=== PATIENT | male | born 1950 | race Asian ===

== ENCOUNTER 2017-09-06 10:19 | Outpatient (CLI) | payer MEDICARE, OTHER | END 2017-09-06 10:20 | disposition home or self-care (01) | LOC: SC 10:19 | PROVIDERS: ATTEND Nurse Practitioner Family | DX: G47.33 Obstructive sleep apnea (adult) (pediatric) (principal) | CPT/HCPCS: 99214; G0463; 99212 ==

== ENCOUNTER 2018-12-11 08:34 | Outpatient (CLI) | payer MEDICARE, OTHER | END 2018-12-11 08:35 | disposition home or self-care (01) | LOC: SC 08:34 | PROVIDERS: ATTEND Nurse Practitioner Family | DX: G47.33 Obstructive sleep apnea (adult) (pediatric) (principal) | CPT/HCPCS: 99214; G0463; 99212 ==

== ENCOUNTER 2019-02-21 08:23 | Outpatient (CLI) | payer MEDICARE, OTHER | END 2019-02-21 08:24 | disposition home or self-care (01) | LOC: SC 08:23 | PROVIDERS: ATTEND Nurse Practitioner Family | DX: G47.33 Obstructive sleep apnea (adult) (pediatric) (principal) | CPT/HCPCS: 99214; G0463; 99212 ==

== ENCOUNTER 2021-06-23 11:21 | Outpatient (CLI) | payer MEDICARE, OTHER ==
--- NOTE | 2021-06-23 12:03 | SLEEP CARE CONSULTATION ---
Information from patient questionnaire entered by Zoie Batista. I have reviewed and concur with the information entered by Zoie Batista. This document represents the service I personally performed and the decisions made by , Carlie Meredith ARNP. History of Present Illness Service Date and Time: 06/23/2021 1121 Previous diagnosis: Mild, Obstructive Sleep Apnea-Hypopnea Syndrome AHI: 11 (in 2012) Reason for follow up: annual (last seen 06/2020) Equipment type: CPAP Equipment obtained from: [employer] (getting supplies as needed) Mask style: Nasal Backup mask available: Yes (old mask) Last cushion change: 1 month ago Prior sleep studies: Yes Year and Where: [address] - [facility]; 2003 - in [place], [place] ([facility]) Type of Sleep Study: Polysomnography HPI additional information: MARCO ANTONIO MAYBERRY was diagnosed to have mild, AHI 11.0, obstructive sleep apnea- hypopnea syndrome and returned today for CPAP therapy annual follow-up. CPAP Compliance Data - Data Reviewed with Patient Average duration of nightly device use: 6 hr 2 min Compliance rate %: 88.9 (180 days) Current pressure setting (cmH2O): 8-10 Humidity settin Heated hose settin Average residual AHI: 2.3 Average large leak: 27 sec Subjective Missed days of use due to: reports: mask issues (irritation on nose) Patient concerns: reports: mask discomfort (when he had skin irritation/rash under his nose). denies: aerophagia, air blowing in eyes, mask leak noise, condensation in mask/hose, nasal congestion, dry mouth, nose, throat, epistaxis, other Observed to snore while using device: No Current pressure setting perceived as: comfortable On therapy, patient: reports: sleeping better, awakening more refreshed, being more awake and alert during the day, more rested overall. denies: drowsiness while driving Initial [place] Sleepiness Scale score: 16 (in 2012) Current [place] Sleepiness Scale score: 2 Allergies and Home Medications Home medication list reviewed: Yes (no changes) Review of Systems Review of systems same as previous: Yes (no changes) Physical Exam Heart Rate: 63 O2 Saturation: 98 Height: 5 ft 4 in Weight: 177 lb 9.6 oz Body Mass Index: 30.4 BMI Classification: Obese Impression and Plan 1. Obstructive Sleep Apnea-Hypopnea Syndrome, mild, with good treatment compliance and good apnea control. On CPAP therapy, the patient has better sleep quality and is more rested overall. Patient had about a week where he had some skin irritation, rash, under his nose and was unable to use his CPAP device. He would like to get a fullface mask that he could use during the situations but likes the nasal mask for most use. I advised him that he can obtain cough barriers to reduce skin irritation. He has also been washing his mask daily to try and reduce this irritation. Pad a Cheek cloth skin barrier pamphlet given about the product. He may purchase a full face mask to use as an alternate if he so desires. He voiced understanding. Patient's apnea severity and rationale for treatment to reduce apnea, improve sleep quality and reduce cardiovascular and cerebrovascular events was reviewed. I also reviewed the benefit of consistent device use of CPAP for borderline hypertension. * Continue autoCPAP pressure at 8-10 cmH2O * Obtain fabric barrier to reduce skin irritation * Notify me if snoring with mask or feeling that the pressure is too much or too little * Attempt to lose weight * Call this office if any problems using CPAP * Return for follow up in 1 year, or sooner if concerns arise Counseling Topics: Spare mask, Weight loss health impact Visit Type: In Office Time Spent with Patient (minutes): 14 Provider Statement: I spent 100% of the Face to Face Visit with the patient with greater than 50% spent counseling the patient and coordination of care.
== END 2021-06-23 11:22 | disposition home or self-care (01) ==
LOC: SC 11:21
PROVIDERS: ATTEND Nurse Practitioner Family
DX: G47.33 Obstructive sleep apnea (adult) (pediatric) (principal); E66.9 Obesity, unspecified; Z68.30 Body mass index [BMI] 30.0-30.9, adult
CPT/HCPCS: 99212; G0463

== ENCOUNTER 2021-12-31 11:36 | Outpatient (CLI) | payer MEDICARE, OTHER | END 2021-12-31 11:37 | disposition critical access hospital (66) | LOC: EMS 11:36 | DX: R07.1 Chest pain on breathing (principal); R06.02 Shortness of breath; S89.91XA Unspecified injury of right lower leg, initial encounter; S49.91XA Unspecified injury of right shoulder and upper arm, initial encounter; W11.XXXA Fall on and from ladder, initial encounter; Y93.H2 Activity, gardening and landscaping | CPT/HCPCS: A0425; A0427 ==

== ENCOUNTER 2021-12-31 11:54 | Inpatient (IN) | payer MEDICARE, OTHER ==
[2021-12-31] MEDS ORDERED: KETOROLAC 30 MG/ML VIAL IVP STA (12:43)
[2021-12-31] MEDS ORDERED: HYDROmorphone 1 MG/ML CARPUJECT IVP STA ×2 (12:43→15:11)
--- NOTE | 2021-12-31 12:54 | ED Physician Documentation ---
History of Present Illness - Stated complaint Stated Complaint: FALL/SIDE PX - Chief complaint Chief Complaint: Trauma Ext - History obtained from History obtained from: Patient - History of Present Illness Timing: How many days ago (2) Pain level max: 10 Pain level now: 8 - Additonal information Additional information: Patient is a 71-year-old male who states he was on a ladder about 7 to 8 feet in the air 2 days ago when he slipped and fell. He landed on grass. Landed on the right side of his ribs and right wrist. Complains of right rib pain and right wrist pain. Worse with movement, better with rest. Worse with coughing and deep breathing. Increasing pain today. No vomiting. No headache. Does not take anticoagulants. No neck or back pain. No focal neurological deficits. No abdominal pain. Review of Systems Constitutional: denies: Fever, Chills Nose: denies: Rhinorrhea / runny nose, Congestion Throat: denies: Sore throat Cardiac: denies: Palpitations GI: denies: Vomiting, Diarrhea Skin: denies: Rash Musculoskeletal: denies: Neck pain, Back pain Neurologic: denies: Headache PD PAST MEDICAL HISTORY - Past Medical History Past Medical History: Yes Cardiovascular: Hypertension - Present Medications Home Medications: Ambulatory Orders Medication Instructions Recorded Confirmed Telmisartan/Hydrochlorothiazid 1 each PO 12/31/21 [Micardis Hct 40-12.5 mg Tablet] - Allergies Allergies/Adverse Reactions: Allergies Allergy/AdvReac Type Severity Reaction Status Date / Time chlorpromazine Allergy Unknown Verified 12/31/21 21:41 [From Thorazine] Penicillins Allergy Unknown Verified 12/31/21 12:07 - Living Situation Living Arrangement: reports: At home - Social History Does the pt have substance abuse?: No - Family History Family history: reports: Non contributory PD ED PE NORMAL - Vitals Vital signs reviewed: Yes - General General: Alert and oriented X 3, No acute distress, Well developed/nourished - HEENT HEENT: Atraumatic, PERRL, Moist mucous membranes, Pharynx benign - Neck Neck: Supple, no meningeal sign, No bony TTP, C-Spine cleared by NEXUS criteria - Cardiac Cardiac: RRR - Respiratory Respiratory: No respiratory distress, Clear bilaterally - Abdomen Abdomen: Soft, Non tender, Non distended - Back Back: No spinal TTP (No midline tenderness to palpation. No step-off or deformity) - Derm Derm: Warm and dry - Extremities Extremities: Other (Tender to palpation near the base of the right thumb as well as the distal radius of the right wrist. No snuffbox tenderness. Neurovascular intact. Otherwise normal examination of the hand, wrist, forearm and elbow.) - Neuro Neuro: Alert and oriented X 3, inner diameter grinder tool 2-12 intact, No motor deficit, No sensory deficit, Normal speech Eye Opening: Spontaneous Motor: Obeys Commands Verbal: Oriented GCS Score: 15 - Free text exam Free text exam: Tender to palpation over the right anterior chest wall. No crepitus or ecchymosis. Results - Vitals Vitals: Vital Signs - 24 hr 12/31/21 12/31/21 12/31/21 12:04 12:08 12:36 Temperature 36 C L Heart Rate 90 89 86 Respiratory 24 22 25 H Rate Blood Pressure 128/85 H 126/86 H O2 Saturation 93 95 12/31/21 13:06 Temperature Heart Rate 80 Respiratory 22 Rate Blood Pressure O2 Saturation 94 Oxygen O2 Source Room air - Labs Labs: Laboratory Tests 12/31/21 12/31/21 12/31/21 12:51 12:51 14:05 WBC 9.2 RBC 4.55 L Hgb 13.4 L Hct 40.7 L MCV 89.5 MCH 29.5 MCHC 32.9 RDW 12.7 Plt Count 181 MPV 9.0 Neut # (Auto) 7.6 H Lymph # (Auto) 0.8 L Chester # (Auto) 0.8 Eos # (Auto) 0.0 Baso # (Auto) 0.0 Absolute Nucleated RBC 0.00 Nucleated RBC % 0.0 Sodium 138 Potassium 3.4 L Chloride 101 Carbon Dioxide 23 Anion Gap 14.0 H BUN 20 Creatinine 1.1 Estimated GFR (MDRD) 66 L Glucose 115 H Calcium 8.9 Total Bilirubin 1.3 H AST 59 H ALT 56 Alkaline Phosphatase 44 Total Protein 7.0 Albumin 4.2 Globulin 2.8 Albumin/Globulin Ratio 1.5 Lipase 31 Nasal Adenovirus (PCR) NOT DETECTED Nasal B. parapertussis DNA (PCR) NOT DETECTED Nasal Coronavir 229E PCR NOT DETECTED Nasal Coronavir HKU1 PCR NOT DETECTED Nasal Coronavir NL63 PCR NOT DETECTED Nasal Coronavir OC43 PCR NOT DETECTED Nasal Enterovir/Rhinovir PCR NOT DETECTED Nasal Influenza B PCR NOT DETECTED Nasal Influenza A PCR NOT DETECTED Nasal Parainfluen 1 PCR NOT DETECTED Nasal Parainfluen 2 PCR NOT DETECTED Nasal Parainfluen 3 PCR NOT DETECTED Nasal Parainfluen 4 PCR NOT DETECTED Nasal RSV (PCR) NOT DETECTED Nasal B.pertussis DNA PCR NOT DETECTED Nasal C.pneumoniae (PCR) NOT DETECTED Jamaal Human Metapneumo PCR NOT DETECTED Nasal M.pneumoniae (PCR) NOT DETECTED Nasal SARS-CoV-2 (PCR) NOT DETECTED - Rads (name of study) Ct chest Radiology: Final report received, EMP read contemporaneously, See rad report R wrist xray Radiology: Final report received, EMP read contemporaneously, See rad report PD MEDICAL DECISION MAKING - ED course Complexity details: reviewed results, re-evaluated patient, considered differential, d/w patient ED course: 71-year-old male with multiple right-sided rib fractures, small pneumothorax. The injuries are over 48 hours old. Discussed the case with Dr. Silva, general surgery on-call. Will place on simple facemask with oxygen, pain medication, And admit the patient to ensure resolution of the pneumothorax as well as adequate pain control. Will need incentive spirometry as well, this was started in the ER. A Velcro thumb spica was placed for the radial styloid possible fracture.. The patient can follow-up with orthopedics as an outpatient, discussed with Dr. Greene, orthopedics. Ct chest IMPRESSION: 1. Right-sided rib fractures. 2. Small right pneumothorax. 3. Bibasilar atelectasis versus pneumonia. 4. Nonobstructing bilateral renal calculi. 5. Small hiatal hernia. R wrist XRAY 1.Cortical irregularity of the radiostyloid, concerning for minimally displaced fracture. Departure - Departure Disposition: [facility] DC/Xfer Clinical Impression: Multiple rib fractures Qualifiers: Encounter type: initial encounter Fracture type: closed Laterality: right Qualified Code(s): S22.41XA - Multiple fractures of ribs, right side, initial encounter for closed fracture Pneumothorax Qualifiers: Pneumothorax type: traumatic Encounter type: initial encounter Qualified Code(s): S27.0XXA - Traumatic pneumothorax, initial encounter Radial styloid fracture Qualifiers: Encounter type: initial encounter Fracture type: closed Fracture alignment: nondisplaced Laterality: right Qualified Code(s): S52.514A - Nondisplaced fracture of right radial styloid process, initial encounter for closed fracture Condition: Stable Discharge Date/Time: 12/31/21 17:41
[2021-12-31 12:55] LABS: BASOPHILS % (AUTO) 0.3 %; EOSINOPHILS % (AUTO) 0.1 %; HCT - HEMATOCRIT 40.7 % (42.0-52.0); HGB - HEMOGLOBIN 13.4 g/dL (14.0-18.0); LYMPHOCYTES # (AUTO) 0.8 10^3/uL (1.5-3.5); LYMPHOCYTES % (AUTO) 8.4 %; MEAN CORPUSCULAR HEMOGLOBIN 29.5 pg (27.0-31.0); MEAN CORPUSCULAR HGB CONC 32.9 g/dL (32.0-36.0); MEAN CORPUSCULAR VOLUME 89.5 fL (80.0-94.0); MONOCYTES # (AUTO) 0.8 10^3/uL (0.0-1.0); MONOCYTES % (AUTO) 8.4 %; NEUTROPHILS # (AUTO) 7.6 10^3/uL (1.5-6.6); NEUTROPHILS % (AUTO) 82.5 %; PLT - PLATELET COUNT 181 10^3/uL (130-450); RED BLOOD COUNT 4.55 10^6/uL (4.70-6.10); RED CELL DISTRIBUTION WIDTH 12.7 % (12.0-15.0); WHITE BLOOD COUNT 9.2 x10^3/uL (4.8-10.8)
[2021-12-31 13:11] LABS: ALBUMIN 4.2 g/dL (3.2-5.5); ALBUMIN/GLOBULIN RATIO 1.5 (1.0-2.2); BILIRUBIN,TOTAL 1.3 mg/dL (0.2-1.0); CALCIUM 8.9 mg/dL (8.5-10.3); CREATININE 1.1 mg/dL (0.6-1.2); POTASSIUM 3.4 mmol/L (3.5-5.0)
--- NOTE | 2021-12-31 13:11 | XRAY Report ---
PROCEDURE: Wrist 4 View RT INDICATIONS: fall, wrist pain TECHNIQUE: 4 views of the wrist were acquired. COMPARISON: None. FINDINGS: BONES: Cortical irregularity of the radiostyloid, best appreciated on the lateral view, concerning fo r minimally displaced fracture. Dorsal calcific densities are seen about the carpus, which may reflec t prior traumatic injury. The remaining visualized osseous structures appear maintained. SOFT TISSUES: No focal abnormality. IMPRESSION: 1.Cortical irregularity of the radiostyloid, concerning for minimally displaced fracture. Reviewed by: Marquis Moon MD on 12/31/2021 1:10 PM [facility] Approved by: Marquis Moon MD on 12/31/2021 1:10 PM [facility] Station ID: [id number]
--- NOTE | 2021-12-31 13:54 | CT Report ---
PROCEDURE: CHEST WO INDICATIONS: R chest wall pain s/p fall 2 days ago TECHNIQUE: Noncontrast 1mm axial images were acquired from the pulmonary apices to the posterior costophrenic an gles. Axial 5 mm soft tissue kernel reconstructions were performed as well as 8 mm axial MIP and cor onal and sagittal 5 mm reformations. For radiation dose reduction, the following was used: automate d exposure control, adjustment of mA and/or kV according to patient size. COMPARISON: None FINDINGS: Image quality: Excellent. Lungs and pleura: Moderate right and mild left bibasilar patchy airspace opacity. Small right-sided p neumothorax is present. Central and peripheral airways are patent and normal in caliber. Mediastinum: Heart size is normal. No pericardial effusion. No mediastinal adenopathy by size crit eria. Thoracic aorta and central pulmonary arteries are normal in size. Esophagus is normal in slava rafael. Small hiatal hernia. Bones and chest wall: Subcutaneous emphysema within the right chest wall. Moderately displaced right anterolateral third rib fracture. Minimally displaced right anterolateral fourth rib fracture. Mildl y displaced right anterolateral fifth, sixth, seventh, and eighth rib fractures. Mildly displaced pos terior fractures of the right second, fourth, fifth, sixth, seventh, and eighth ribs. No vertebral radha dy compression fractures. No axillary or supraclavicular adenopathy by size criteria. The thyroid i s normal in size and there are no incidental findings. Abdomen: Visualized portions of the upper abdomen demonstrate small nonobstructing bilateral renal c alculi. IMPRESSION: 1. Right-sided rib fractures. 2. Small right pneumothorax. 3. Bibasilar atelectasis versus pneumonia. 4. Nonobstructing bilateral renal calculi. 5. Small hiatal hernia. 6. Findings discussed with on 12/31/2021 at 1352 hours. Reviewed by: Jh Cooley MD on 12/31/2021 1:53 PM PST Approved by: Jh Cooley MD on 12/31/2021 1:53 PM PST Station ID: [id number]
[2021-12-31 15:12] LABS: CORONAVIRUS 229E-RESP PCR NOT DETECTED; CORONAVIRUS HKU1-RESP PCR NOT DETECTED; CORONAVIRUS NL63-RESP PCR NOT DETECTED; CORONAVIRUS OC43-RESP PCR NOT DETECTED; HUMAN METAPNEUMOVIRUS NOT DETECTED; INFLUENZA A- RESP PCR PANEL NOT DETECTED; RHINOVIRUS/ENTEROVIRUS NOT DETECTED; SARS-CoV-2 -RESP PCR PANEL NOT DETECTED
[2021-12-31 15:13] LABS: B. PARAPERTUSSIS- RESP PCR PAN NOT DETECTED; B. PERTUSSIS- RESP PCR PANEL NOT DETECTED; C. PNEUMONIAE- RESP PCR PANEL NOT DETECTED; INFLUENZA B - RESP PCR PANEL NOT DETECTED; M. PNEUMONIAE- RESP PCR PANEL NOT DETECTED; PARAINFLUENZA VIRUS 1 NOT DETECTED; PARAINFLUENZA VIRUS 2 NOT DETECTED; PARAINFLUENZA VIRUS 3 NOT DETECTED; PARAINFLUENZA VIRUS 4 NOT DETECTED; RSV- RESP PCR PANEL NOT DETECTED
[2021-12-31] MEDS ORDERED: ONDANSETRON ODT 4 MG TABLET TL PRN (15:33)
--- NOTE | 2021-12-31 15:40 | HISTORY & PHYSICAL EXAMINATION ---
Chief Complaint - Chief Complaint Chief Complaint: fall and poorly controlled pain History of Present Illness - Admitted From Admitted From:: ED - History Obtained From Records Reviewed: yes History obtained from: pt Exam Limitations: none - History of Present Illness HPI Comment/Other: fall from ladder 6 to 7 ft 2 days ago. not doing well at home due to chest wall pain. History - Past Medical History Cardiovascular: reports: Hypertension - Family & Social History Living arrangement: At home Meds/Allgy - Home Medications Home Medications: Ambulatory Orders Medication Instructions Recorded Confirmed Telmisartan/Hydrochlorothiazid 1 each PO 12/31/21 [Micardis Hct 40-12.5 mg Tablet] - Allergies Allergies/Adverse Reactions: Allergies Allergy/AdvReac Type Severity Reaction Status Date / Time Penicillins Allergy Unknown Verified 12/31/21 12:07 Review of Systems - Other Findings Other Findings: 10 pt ros as above otherwise unremarkable Exam - Vital Signs Reviewed Vital Signs: Yes Vital Signs: Vital Signs x48h Temp Pulse Resp BP Pulse Ox 12/31/21 13:06 80 22 94 12/31/21 12:36 86 25 H 126/86 H 95 12/31/21 12:08 89 22 12/31/21 12:04 36 C L 90 24 128/85 H 93 - Physical Exam General Appearance: positive: Alert Eyes Bilateral: positive: PERRL, EOMI ENT: positive: No signs of dehydration Neck: positive: No JVD Respiratory: positive: No respiratory distress, Breath sounds nml, Other (right chest wall tenderness) Cardiovascular: positive: Regular rate & rhythm Abdomen: positive: Non-tender, No distention Neurologic/Psychiatric: positive: Oriented x3 Conclusion/Plan - Problem List (1) Multiple rib fractures Conclusion/Plan: plan admit pain control O2 therapy for ptx repeat cxr in am close observation Qualifiers: Encounter type: initial encounter Fracture type: closed Laterality: right Qualified Code(s): S22.41XA - Multiple fractures of ribs, right side, initial encounter for closed fracture (2) Pneumothorax Qualifiers: Pneumothorax type: traumatic Encounter type: initial encounter Qualified Code(s): S27.0XXA - Traumatic pneumothorax, initial encounter - Lab Results Fish Bones: 12/31/21 12:51 12/31/21 12:51
[2021-12-31] MEDS: SODIUM CHLORIDE FLUSH 0.9% 10 ML SYRINGE IVP SCH (18:06)
[2021-12-31] MEDS: D5.45NS W/20 MEQ KCL 1,000 ML IV SCH (19:36)
[2021-12-31] MEDS: oxyCODONE 5 MG TABLET PO PRN ×2 (19:37→23:55)
[2021-12-31] MEDS: ACETAMINOPHEN 325 MG TABLET PO PRN ×2 (19:37→23:55)
[2021-12-31] MEDS ORDERED: ZOLPIDEM 5 MG TABLET PO PRN (21:00)
[2021-12-31] MEDS: IBUPROFEN 800 MG TABLET PO SCH (21:53)
[2022-01-01] MEDS: SODIUM CHLORIDE FLUSH 0.9% 10 ML SYRINGE IVP SCH ×4 (01:02→22:18)
[2022-01-01] MEDS: D5.45NS W/20 MEQ KCL 1,000 ML IV SCH ×2 (04:34→14:35)
[2022-01-01] MEDS: oxyCODONE 5 MG TABLET PO PRN ×5 (04:47→20:44)
[2022-01-01] MEDS: ACETAMINOPHEN 325 MG TABLET PO PRN ×5 (04:47→20:43)
[2022-01-01] MEDS: IBUPROFEN 800 MG TABLET PO SCH ×3 (05:56→22:18)
[2022-01-01] MEDS: polyethylene glycoL 3350 17 GM PACKET PO SCH (08:16)
--- NOTE | 2022-01-01 09:23 | XRAY Report ---
PROCEDURE: Chest 1 View X-Ray INDICATIONS: follow up ptx TECHNIQUE: One view of the chest was acquired. COMPARISON: Reference is made to the CT chest dated December 31, 2021. FINDINGS: The patient is mildly rotated. SUPPORT DEVICES: None. LUNGS/PLEURA: Persistent moderate right pneumothorax, measuring 5 cm in craniocaudal dimension. The l eft lung is well aerated. MEDIASTINUM: The cardiomediastinal silhouette is within normal limits. BONES/SOFT TISSUES: Redemonstrated right chest wall subcutaneous emphysema and right rib fractures. IMPRESSION: 1.Moderate right pneumothorax, which appears to have increased in size. Findings were discussed with the ordering provider, Dr. Silva, at the time of dictation. Reviewed by: Marquis Moon MD on 01/01/2022 9:22 AM [facility] Approved by: Marquis Moon MD on 01/01/2022 9:22 AM PST Station ID: [id number]
--- NOTE | 2022-01-01 14:12 | PROVIDER PROGRESS NOTE ---
Subjective - Subjective Pt reports feeling: Improved (still very painful, needing iv pain medication and assistance oob) Objective - Vital Signs/Intake & Output Reviewed Vital Signs: Yes Vital Signs: Vital Signs x48h Temp Pulse Resp BP Pulse Ox 01/01/22 13:00 66 20 135/78 H 95 01/01/22 12:00 78 22 142/100 H 94 01/01/22 11:00 62 16 128/79 97 01/01/22 10:29 23 95 01/01/22 10:00 71 25 H 128/81 H 92 01/01/22 09:00 73 28 H 133/84 H 92 01/01/22 08:00 36.5 C 81 20 137/90 H 92 01/01/22 07:00 61 15 125/80 93 Intake & Output: Intake & Output 12/29/21 12/30/21 12/31/21 01/01/22 23:59 23:59 23:59 23:59 Intake Total 540 2020.000 Output Total 350 Balance 190 2020.000 - Objective General Appearance: positive: No acute distress, Alert Eyes Bilateral: positive: PERRL, EOMI ENT: positive: No signs of dehydration Neck: positive: No JVD Respiratory: positive: No respiratory distress Abdomen: positive: Non-tender, No distention Neurologic/Psychiatric: positive: Oriented x3 - Lab Results Fish Bones: 12/31/21 12:51 12/31/21 12:51 Other Labs: Lab Results x24hrs 12/31/21 12/31/21 Range/Units 17:53 14:05 Nasal Adenovirus (PCR) NOT DETECTED Nasal B. parapertussis DNA (PCR) NOT DETECTED Nasal Coronavir 229E PCR NOT DETECTED Nasal Coronavir HKU1 PCR NOT DETECTED Nasal Coronavir NL63 PCR NOT DETECTED Nasal Coronavir OC43 PCR NOT DETECTED Nasal Enterovir/Rhinovir PCR NOT DETECTED Nasal Influenza B PCR NOT DETECTED Nasal Influenza A PCR NOT DETECTED Nasal Parainfluen 1 PCR NOT DETECTED Nasal Parainfluen 2 PCR NOT DETECTED Nasal Parainfluen 3 PCR NOT DETECTED Nasal Parainfluen 4 PCR NOT DETECTED Nasal RSV (PCR) NOT DETECTED Nasal Screen MRSA (PCR) NEGATIVE (NEGATIVE) Nasal B.pertussis DNA PCR NOT DETECTED Nasal C.pneumoniae (PCR) NOT DETECTED Jamaal Human Metapneumo PCR NOT DETECTED Nasal M.pneumoniae (PCR) NOT DETECTED Nasal SARS-CoV-2 (PCR) NOT DETECTED - Diagnostic Imaging Diagnostic Imaging Results: positive: Read independently (ptx present 15 %) Assessment/Plan - Problem List (1) Multiple rib fractures Impression: he continues to need iv pain medication and assistance oob ptx still present continue O2 follow up cxr in am Qualifiers: Encounter type: initial encounter Fracture type: closed Laterality: right Qualified Code(s): S22.41XA - Multiple fractures of ribs, right side, initial encounter for closed fracture (2) Pneumothorax Qualifiers: Pneumothorax type: traumatic Encounter type: initial encounter Qualified Code(s): S27.0XXA - Traumatic pneumothorax, initial encounter
[2022-01-02] MEDS: ACETAMINOPHEN 325 MG TABLET PO PRN ×4 (00:43→19:44)
[2022-01-02] MEDS: oxyCODONE 5 MG TABLET PO PRN ×3 (00:43→22:36)
[2022-01-02] MEDS: D5.45NS W/20 MEQ KCL 1,000 ML IV SCH (00:44)
[2022-01-02] MEDS: IBUPROFEN 800 MG TABLET PO SCH ×4 (05:05→22:36)
[2022-01-02] MEDS: ONDANSETRON 4 MG/2 ML VIAL IVP PRN (06:35)
--- NOTE | 2022-01-02 07:42 | XRAY Report ---
PROCEDURE: Chest 1 View X-Ray INDICATIONS: follow up right ptx TECHNIQUE: One view of the chest was acquired. COMPARISON: 01/01/2022 FINDINGS: Surgical changes and devices: None. Lungs and pleura: Interval increase in size of large right pneumothorax with near-complete collapse o f the right lung. No shift of mediastinal structures. Left lung appears clear. Mediastinum: Mediastinal contours appear stable. Heart size is normal. Bones and chest wall: No suspicious bony lesions. Overlying soft tissues appear unremarkable. Rede monstration of mildly displaced posterior upper right rib fractures. Moderate amount of subcutaneous soft tissue emphysema of the right lower neck and right chest wall IMPRESSION: Significant interval increase in now large right pneumothorax with near complete collapse of the righ t lung. No midline shift of mediastinal. Redemonstration of mildly displaced posterior upper right ri b fractures. No significant discrepancy with initial interpretation by overnight radiologist. Findings were already known by the surgical team and a chest tube has been placed. Reviewed by: Jose Pope MD on 01/02/2022 7:40 AM PST Approved by: Jose Pope MD on 01/02/2022 7:40 AM PST Station ID: [id number]
[2022-01-02] MEDS: HYDROmorphone 0.5 MG/0.5 ML SYRINGE IVP PRN ×2 (11:24→11:27)
--- NOTE | 2022-01-02 11:55 | OPERATIVE REPORT ---
Operative Report - General Admit Date: 01/01/22 Procedure Date: 01/02/22 Planned Procedure: right chest tube placement Pre-Op Diagnosis: right pneumothorax Procedure Performed: right chest tube placement Post Op Diagnosis: right hemopneumothorax - Procedure Note Primary Surgeon: marti mcmanus Anesthesia Technique: Local Estimated Blood Loss (mL): 500 Drain/Tube Type: Other (28 fr chest tube) Indications: complete pneumothorax Complications: none - Other Other Information/Narrative: sterile technique and local anesthesia. well tolerated
--- NOTE | 2022-01-02 11:56 | PROVIDER PROGRESS NOTE ---
Subjective - Subjective Pt reports feeling: No change Objective - Vital Signs/Intake & Output Reviewed Vital Signs: Yes Vital Signs: Vital Signs x48h Temp Pulse Resp BP Pulse Ox 01/02/22 10:00 81 20 132/78 H 96 01/02/22 09:00 36.9 C 83 20 155/91 H 98 01/02/22 08:00 78 19 143/80 H 100 01/02/22 07:00 72 12 133/79 H 100 01/02/22 06:00 67 14 144/92 H 4 L 01/02/22 05:00 70 18 134/78 H 100 01/02/22 04:00 68 15 120/88 H 100 Intake & Output: Intake & Output 12/30/21 12/31/21 01/01/22 01/02/22 23:59 23:59 23:59 23:59 Intake Total 540 2718.334 798.333 Output Total 350 375 Balance 190 2718.334 423.333 - Objective General Appearance: positive: Alert, Mild distress Eyes Bilateral: positive: PERRL, EOMI Neck: positive: No JVD Respiratory: positive: No respiratory distress Abdomen: positive: Non-tender, No distention Neurologic/Psychiatric: positive: Oriented x3 - Lab Results Fish Bones: 12/31/21 12:51 12/31/21 12:51 - Diagnostic Imaging Diagnostic Imaging Results: positive: Read independently Assessment/Plan - Problem List (1) Multiple rib fractures Impression: pneumothorax has progressed. parq held and consent obtained. right chest tube placed small air leak still present Qualifiers: Encounter type: initial encounter Fracture type: closed Laterality: right Qualified Code(s): S22.41XA - Multiple fractures of ribs, right side, initial encounter for closed fracture (2) Pneumothorax Qualifiers: Pneumothorax type: traumatic Encounter type: initial encounter Qualified Code(s): S27.0XXA - Traumatic pneumothorax, initial encounter
[2022-01-02] MEDS: polyethylene glycoL 3350 17 GM PACKET PO SCH (18:33)
[2022-01-02] MEDS: SODIUM CHLORIDE FLUSH 0.9% 10 ML SYRINGE IVP SCH ×3 (18:36→21:58)
[2022-01-03] MEDS: ACETAMINOPHEN 325 MG TABLET PO PRN ×5 (05:33→21:04)
[2022-01-03] MEDS: oxyCODONE 5 MG TABLET PO PRN ×5 (05:33→21:04)
--- NOTE | 2022-01-03 08:14 | XRAY Report ---
PROCEDURE: Chest 1 View X-Ray INDICATIONS: follow up ptx/ ct placement TECHNIQUE: One view of the chest was acquired. COMPARISON: 01/02/2022, 01/01/2022, chest CT 12/31/2021 FINDINGS: Surgical changes and devices: There is a right-sided chest tube, with the tip of the right lung apex. There is truncation of the left distal clavicle. Lungs and pleura: The right lung is now reexpanded, without visualized residual pneumothorax. Low long g volumes can be seen, causing a crowded appearance to the lung markings. Likely streaky atelectasis seen at the right lung base. Mediastinum: Mediastinal contours appear normal. Heart size is mildly enlarged. Bones and chest wall: No suspicious bony lesions. Age-appropriate degenerative changes are seen. T here is moderate right-sided subcutaneous gas seen, with the volume of gas increased compared to the 01/02/2022 examination. IMPRESSION: Interval placement of a right-sided chest tube, with resolution of the previously seen right-sided pn eumothorax. Moderate right-sided soft tissue gas can be seen. Reviewed by: Hima Al MD on 01/03/2022 7:13 AM [facility] Approved by: Hima Al MD on 01/03/2022 7:13 AM [facility] [[email or web address] Station ID: [id number]
[2022-01-03] MEDS: DOCUSATE SODIUM 250 MG CAPSULE PO SCH ×2 (08:31→08:33)
[2022-01-03] MEDS: polyethylene glycoL 3350 17 GM PACKET PO SCH (08:32)
[2022-01-03] MEDS: SENNA 8.6 MG TABLET PO SCH (08:33)
[2022-01-03] MEDS: SODIUM CHLORIDE FLUSH 0.9% 10 ML SYRINGE IVP SCH ×3 (08:51→23:19)
--- NOTE | 2022-01-03 13:39 | PROVIDER PROGRESS NOTE ---
Subjective - Prog Note Date Prog Note Date: 01/03/22 - Subjective Pt reports feeling: Improved (less painful and breathing improved) Objective - Vital Signs/Intake & Output Reviewed Vital Signs: Yes Vital Signs: Vital Signs x48h Temp Pulse Resp BP Pulse Ox 01/03/22 13:00 82 18 112/96 H 95 01/03/22 12:00 82 18 135/91 H 94 01/03/22 11:49 37.2 C 01/03/22 11:00 85 20 125/83 H 93 01/03/22 10:00 90 22 101/82 H 95 01/03/22 08:59 36.6 C 92 20 109/84 H 01/03/22 08:00 90 19 92 01/03/22 07:44 37 C 01/03/22 07:00 82 17 119/77 95 01/03/22 06:00 37.6 C 93 20 129/75 95 Intake & Output: Intake & Output 12/31/21 01/01/22 01/02/22 01/03/22 23:59 23:59 23:59 23:59 Intake Total 540 2718.334 2168.333 250 Output Total 350 1440 100 Balance 190 2718.334 728.333 150 - Objective General Appearance: positive: No acute distress, Alert ENT: positive: No signs of dehydration Neck: positive: No JVD Respiratory: positive: No respiratory distress Abdomen: positive: Non-tender, No distention Neurologic/Psychiatric: positive: Oriented x3 - Lab Results Fish Bones: 12/31/21 12:51 12/31/21 12:51 - Diagnostic Imaging Diagnostic Imaging Results: positive: Read independently (bilateral lung congestion. no ptx) Assessment/Plan - Problem List (1) Multiple rib fractures Impression: still very painful however improved continue present care anticipated chest tube out in 2 days and home in 3 days Qualifiers: Encounter type: initial encounter Fracture type: closed Laterality: right Qualified Code(s): S22.41XA - Multiple fractures of ribs, right side, initial encounter for closed fracture (2) Pneumothorax Qualifiers: Pneumothorax type: traumatic Encounter type: initial encounter Qualified Code(s): S27.0XXA - Traumatic pneumothorax, initial encounter
[2022-01-03] MEDS: IBUPROFEN 600 MG TABLET PO SCH ×2 (14:17→21:04)
[2022-01-04] MEDS: oxyCODONE 5 MG TABLET PO PRN ×4 (02:09→19:51)
[2022-01-04] MEDS: ACETAMINOPHEN 325 MG TABLET PO PRN ×2 (02:10→05:36)
[2022-01-04] MEDS: IBUPROFEN 600 MG TABLET PO SCH ×3 (05:36→21:48)
[2022-01-04] MEDS: SENNA 8.6 MG TABLET PO SCH (08:16)
[2022-01-04] MEDS: DOCUSATE SODIUM 250 MG CAPSULE PO SCH (08:16)
[2022-01-04] MEDS: polyethylene glycoL 3350 17 GM PACKET PO SCH (08:16)
[2022-01-04] MEDS: SODIUM CHLORIDE FLUSH 0.9% 10 ML SYRINGE IVP SCH ×3 (08:17→21:49)
[2022-01-04] MEDS ORDERED: MAGNESIUM HYDROXIDE 2,400 MG/30 ML UDC PO ONE (09:00)
--- NOTE | 2022-01-04 10:35 | PROVIDER PROGRESS NOTE ---
Subjective - Subjective Pt reports feeling: Improved (less painful and breathing improved) Objective - Vital Signs/Intake & Output Reviewed Vital Signs: Yes Vital Signs: Vital Signs x48h Temp Pulse Resp BP Pulse Ox 01/04/22 09:00 80 20 107/94 H 92 01/04/22 08:00 77 18 114/87 H 91 L 01/04/22 07:00 79 17 115/89 H 93 01/04/22 06:28 36.1 C L 81 22 118/83 H 91 L 01/04/22 05:00 61 16 135/84 H 96 01/04/22 04:00 61 14 102/73 95 01/04/22 03:00 59 L 17 101/77 94 Intake & Output: Intake & Output 01/01/22 01/02/22 01/03/22 01/04/22 23:59 23:59 23:59 23:59 Intake Total 2718.334 2168.333 1140 Output Total 1440 180 Balance 2718.334 728.333 960 - Objective General Appearance: positive: No acute distress, Alert, Other (appears much more comfortable today) Respiratory: positive: No respiratory distress Abdomen: positive: Non-tender, No distention Neurologic/Psychiatric: positive: Oriented x3 - Lab Results Fish Bones: 12/31/21 12:51 12/31/21 12:51 Assessment/Plan - Problem List (1) Multiple rib fractures Impression: improved today chest tube to water seal today. anticipate chest tube out tomorrow and home tomorrow or 01/06 Qualifiers: Encounter type: initial encounter Fracture type: closed Laterality: right Qualified Code(s): S22.41XA - Multiple fractures of ribs, right side, initial encounter for closed fracture (2) Pneumothorax Qualifiers: Pneumothorax type: traumatic Encounter type: initial encounter Qualified Code(s): S27.0XXA - Traumatic pneumothorax, initial encounter
[2022-01-05] MEDS: oxyCODONE 5 MG TABLET PO PRN ×6 (00:16→23:15)
[2022-01-05] MEDS: IBUPROFEN 600 MG TABLET PO SCH ×3 (06:24→21:39)
[2022-01-05] MEDS: SENNA 8.6 MG TABLET PO SCH (08:22)
[2022-01-05] MEDS: DOCUSATE SODIUM 250 MG CAPSULE PO SCH (08:22)
[2022-01-05] MEDS: polyethylene glycoL 3350 17 GM PACKET PO SCH (08:23)
--- NOTE | 2022-01-05 10:47 | PROVIDER PROGRESS NOTE ---
Subjective - Prog Note Date Prog Note Date: 01/05/22 - Subjective Pt reports feeling: No change (still very painful at times) Objective - Vital Signs/Intake & Output Reviewed Vital Signs: Yes Vital Signs: Vital Signs x48h Temp Pulse Resp BP BP Pulse Ox 01/05/22 10:00 87 23 124/81 H 93 01/05/22 09:00 36.3 C L 85 30 H 121/84 H 94 01/05/22 08:00 81 25 H 143/87 H 94 01/05/22 07:00 61 16 142/71 H 96 01/05/22 06:00 69 18 128/80 92 01/05/22 05:00 69 13 123/79 95 01/05/22 04:00 36.6 C 70 20 131/93 H 98 01/05/22 03:00 64 15 114/76 94 Intake & Output: Intake & Output 01/02/22 01/03/22 01/04/22 01/05/22 23:59 23:59 23:59 23:59 Intake Total 2168.333 1140 700 520 Output Total 1440 180 120 70 Balance 728.333 960 580 450 - Objective General Appearance: positive: No acute distress, Alert Eyes Bilateral: positive: PERRL, EOMI Respiratory: positive: No respiratory distress Abdomen: positive: Non-tender, No distention Neurologic/Psychiatric: positive: Oriented x3 - Lab Results Fish Bones: 12/31/21 12:51 12/31/21 12:51 Assessment/Plan - Problem List (1) Multiple rib fractures Impression: still very painful at times. plan clamp chest tube. recheck end of day. if no air leak or significant fluid, plan d/c chest tube later today. Qualifiers: Encounter type: initial encounter Fracture type: closed Laterality: right Qualified Code(s): S22.41XA - Multiple fractures of ribs, right side, initial encounter for closed fracture (2) Pneumothorax Qualifiers: Pneumothorax type: traumatic Encounter type: initial encounter Qualified Code(s): S27.0XXA - Traumatic pneumothorax, initial encounter
[2022-01-05] MEDS: ACETAMINOPHEN 325 MG TABLET PO PRN ×3 (11:36→21:40)
[2022-01-05] MEDS: SODIUM CHLORIDE FLUSH 0.9% 10 ML SYRINGE IVP SCH ×3 (13:21→23:15)
[2022-01-05] MEDS: HYDROmorphone 0.5 MG/0.5 ML SYRINGE IVP PRN (23:15)
[2022-01-06] MEDS: oxyCODONE 5 MG TABLET PO PRN ×7 (03:26→23:28)
[2022-01-06] MEDS: IBUPROFEN 600 MG TABLET PO SCH ×3 (05:00→22:08)
[2022-01-06] MEDS: HYDROmorphone 0.5 MG/0.5 ML SYRINGE IVP PRN (07:40)
--- NOTE | 2022-01-06 08:34 | PROVIDER PROGRESS NOTE ---
Subjective - Prog Note Date Prog Note Date: 01/06/22 - Subjective Pt reports feeling: Improved (still very painful; however, improved) Objective - Vital Signs/Intake & Output Reviewed Vital Signs: Yes Vital Signs: Vital Signs x48h Temp Pulse Resp BP Pulse Ox 01/06/22 08:00 37.1 C 83 22 102/69 95 01/06/22 06:50 84 16 109/73 88 L 01/06/22 06:00 80 20 98/77 90 L 01/06/22 05:00 72 14 103/67 91 L 01/06/22 04:00 36.8 C 68 11 L 97/75 93 01/06/22 03:00 72 12 95/61 93 01/06/22 02:00 68 13 95/65 95 01/06/22 01:00 85 16 92 Intake & Output: Intake & Output 01/03/22 01/04/22 01/05/22 01/06/22 23:59 23:59 23:59 23:59 Intake Total 4607 790 6166 200 Output Total 180 120 270 350 Balance 705 282 6351 -150 - Objective General Appearance: positive: No acute distress, Alert Eyes Bilateral: positive: PERRL, EOMI Respiratory: positive: No respiratory distress, Other (chest tube scant serous and no leak chest tube is removed. well tolerated) Abdomen: positive: Non-tender, No distention Neurologic/Psychiatric: positive: Oriented x3 - Lab Results Fish Bones: 12/31/21 12:51 12/31/21 12:51 Assessment/Plan - Problem List (1) Multiple rib fractures Impression: gradual improvement chest tube removed change vitals to q 4 hours home when able to ambulate safely, pain controlled without iv meds and room air sats > 92 % Qualifiers: Encounter type: initial encounter Fracture type: closed Laterality: right Qualified Code(s): S22.41XA - Multiple fractures of ribs, right side, initial encounter for closed fracture (2) Pneumothorax Qualifiers: Pneumothorax type: traumatic Encounter type: initial encounter Qualified Code(s): S27.0XXA - Traumatic pneumothorax, initial encounter
[2022-01-06] MEDS: SODIUM CHLORIDE FLUSH 0.9% 10 ML SYRINGE IVP SCH ×2 (09:00→16:57)
[2022-01-06] MEDS: polyethylene glycoL 3350 17 GM PACKET PO SCH (12:00)
[2022-01-06] MEDS: SENNA 8.6 MG TABLET PO SCH (12:00)
[2022-01-06] MEDS: ACETAMINOPHEN 325 MG TABLET PO PRN ×2 (16:00→20:41)
[2022-01-07] MEDS: CALCIUM CARBONATE CHEW 500 MG TABLET PO SCH ×3 (00:47→21:51)
[2022-01-07] MEDS: oxyCODONE 5 MG TABLET PO PRN ×7 (02:59→22:51)
[2022-01-07] MEDS: SODIUM CHLORIDE FLUSH 0.9% 10 ML SYRINGE IVP SCH ×3 (06:36→16:40)
[2022-01-07] MEDS: IBUPROFEN 600 MG TABLET PO SCH ×3 (07:55→21:51)
[2022-01-07] MEDS: DOCUSATE SODIUM 250 MG CAPSULE PO SCH (07:58)
[2022-01-07] MEDS: polyethylene glycoL 3350 17 GM PACKET PO SCH (07:59)
[2022-01-07] MEDS: SENNA 8.6 MG TABLET PO SCH (07:59)
[2022-01-07] MEDS: CHOLECALCIFEROL 25 MCG TABLET PO SCH (08:00)
[2022-01-07] MEDS: ACETAMINOPHEN 325 MG TABLET PO PRN ×2 (16:40→22:51)
[2022-01-08] MEDS: SODIUM CHLORIDE FLUSH 0.9% 10 ML SYRINGE IVP SCH ×4 (01:45→21:18)
[2022-01-08] MEDS: ACETAMINOPHEN 325 MG TABLET PO PRN ×3 (04:07→19:50)
[2022-01-08] MEDS: oxyCODONE 5 MG TABLET PO PRN ×4 (04:08→19:49)
[2022-01-08] MEDS: IBUPROFEN 600 MG TABLET PO SCH ×3 (05:36→21:19)
[2022-01-08] MEDS: DOCUSATE SODIUM 250 MG CAPSULE PO SCH (08:38)
[2022-01-08] MEDS: SENNA 8.6 MG TABLET PO SCH (08:38)
[2022-01-08] MEDS: CALCIUM CARBONATE CHEW 500 MG TABLET PO SCH ×2 (08:38→21:19)
[2022-01-08] MEDS: polyethylene glycoL 3350 17 GM PACKET PO SCH (08:38)
[2022-01-08] MEDS: CHOLECALCIFEROL 25 MCG TABLET PO SCH (08:38)
--- NOTE | 2022-01-08 10:11 | XRAY Report ---
PROCEDURE: Chest 1 View X-Ray INDICATIONS: follow up rib fxs and ptx TECHNIQUE: One view of the chest was acquired. COMPARISON: Prior studies dating back to December 31, 2021. FINDINGS: SUPPORT DEVICES: Interval removal of the patient's right chest tube. LUNGS/PLEURA: Moderate right pleural effusion with adjacent atelectasis. The left lung is well aerated. No pneumothorax. MEDIASTINUM: Prominence of the cardiac silhouette, partially exaggerated by technique. BONES/SOFT TISSUES: The patient's known rib fractures are not well seen. Persistent right chest wall subcutaneous emphysema, slightly improved. IMPRESSION: 1.Moderate right pleural effusion. Reviewed by: Marquis Moon MD on 01/08/2022 10:09 AM [facility] Approved by: Marquis Moon MD on 01/08/2022 10:09 AM [facility] Station ID: [id number]
[2022-01-08] MEDS ORDERED: SODIUM CHLORIDE 0.9% 10 ML VIAL IVP ONE ×2 (10:25→10:26)
[2022-01-08] MEDS ORDERED: EPINEPHrine 1 MG/ML AMP ONE (10:26)
[2022-01-08] MEDS ORDERED: ROPIVACAINE 0.5% PF 30 ML VIAL ONE (10:26)
[2022-01-08] MEDS ORDERED: LIDOCAINE-MPF 2% 5 ML VIAL ONE (10:26)
[2022-01-08] MEDS ORDERED: DEXAMETHASONE 10 MG/ML VIAL ONE (10:26)
--- NOTE | 2022-01-08 11:09 | ANESTHESIA PROCEDURE NOTE ---
Diagnosis: Right sided rib fractures Procedure: right Erector spinae block at T5 level Consent for Procedure(s) Verified and Reviewed: Yes Height and Weight: Height 5 ft 4 in Weight (kg) 78.5 kg Body Mass Index 29.7 Vital Signs: Temp Pulse Resp BP Pulse Ox 37.1 C 71 20 99/64 94 01/08/22 09:00 01/08/22 10:52 01/08/22 10:52 01/08/22 10:52 01/08/22 10:52 Allergies chlorpromazine [From Thorazine] Allergy (Verified 12/31/21 21:41) Unknown Penicillins Allergy (Verified 12/31/21 12:07) Unknown Requesting Provider: Dr. Silva ASA classification: 3-Severe systemic disease Is this case an emergency?: No Anes. Monitoring and Equipment: Non-invasive BP, Pulse oximetery, Sterile prep and drape Anes. Procedure Start Time: 10:30 Anes. Procedure Stop Time: 10:40 Procedure Notes: Right sided erector spinae block performed at T5 level with US guidance. Ropivacaine 0.25% 40 mL, Decadron 10 mg, with epi wash injected. Standard procedure followed. Pt tolerated well. Rates pain at 9/10 pre block, re- evaluated 20 mins post block at 5/10 pain.
--- NOTE | 2022-01-08 12:04 | PROVIDER PROGRESS NOTE ---
Subjective - Subjective Pt reports feeling: No change (still very painful) Objective - Vital Signs/Intake & Output Reviewed Vital Signs: Yes Vital Signs: Vital Signs x48h Temp Pulse Resp BP Pulse Ox 01/08/22 11:06 70 15 109/64 95 01/08/22 10:52 71 20 99/64 94 01/08/22 10:41 84 22 134/76 H 95 01/08/22 10:30 78 22 134/76 H 94 01/08/22 09:00 37.1 C 79 22 106/73 95 01/08/22 05:46 36.9 C 78 16 128/76 94 Intake & Output: Intake & Output 01/05/22 01/06/22 01/07/22 01/08/22 23:59 23:59 23:59 23:59 Intake Total 20090 1650 780 Output Total 270 350 350 Balance 1740 1270 1300 780 - Objective General Appearance: positive: No acute distress, Alert Respiratory: positive: No respiratory distress Abdomen: positive: Non-tender, No distention Neurologic/Psychiatric: positive: Oriented x3 - Lab Results Fish Bones: 12/31/21 12:51 12/31/21 12:51 Assessment/Plan - Problem List (1) Multiple rib fractures Impression: very painful still cxr right effusion. no ptx gabapentin and anesthesia consult for pain Qualifiers: Encounter type: initial encounter Fracture type: closed Laterality: right Qualified Code(s): S22.41XA - Multiple fractures of ribs, right side, initial encounter for closed fracture (2) Pneumothorax Qualifiers: Pneumothorax type: traumatic Encounter type: initial encounter Qualified Code(s): S27.0XXA - Traumatic pneumothorax, initial encounter
[2022-01-08] MEDS: GABAPENTIN 300 MG CAPSULE PO SCH ×2 (12:55→21:19)
[2022-01-08] MEDS ORDERED: MAGNESIUM HYDROXIDE 2,400 MG/30 ML UDC PO ONE ×2 (17:42→18:00)
[2022-01-08] MEDS: MULTIVITAMIN W/MINERALS TABLET PO SCH (17:49)
[2022-01-08] MEDS: HYDROmorphone 0.5 MG/0.5 ML SYRINGE IVP PRN (18:33)
[2022-01-09] MEDS: oxyCODONE 5 MG TABLET PO PRN ×6 (00:05→21:31)
[2022-01-09] MEDS: HYDROmorphone 0.5 MG/0.5 ML SYRINGE IVP PRN ×3 (04:43→16:01)
[2022-01-09] MEDS: SODIUM CHLORIDE FLUSH 0.9% 10 ML SYRINGE IVP PRN (04:43)
[2022-01-09] MEDS: ACETAMINOPHEN 325 MG TABLET PO PRN (04:56)
[2022-01-09] MEDS: IBUPROFEN 600 MG TABLET PO SCH ×3 (06:27→21:31)
[2022-01-09] MEDS: GABAPENTIN 300 MG CAPSULE PO SCH ×3 (06:27→21:30)
[2022-01-09] MEDS ORDERED: MAGNESIUM HYDROXIDE 2,400 MG/30 ML UDC PO ONE (07:40)
--- NOTE | 2022-01-09 09:06 | PROVIDER PROGRESS NOTE ---
Subjective - General Admit Date: 01/01/22 Procedure Date: 01/02/22 Post Op Days: 7 Objective - Patient Data Reviewed Vital Signs: Yes Vital Signs: Vital Signs x48h Temp Pulse Resp BP Pulse Ox 01/09/22 05:01 36.6 C 82 22 142/77 H 93 Intake & Output: Intake and Output Totals x24h 01/07/22 01/08/22 01/09/22 23:59 23:59 23:59 Intake Total 1650 1460 550 Output Total 350 500 400 Balance 1300 960 150 - Lab Results Lab Results: 12/31/21 12:51 12/31/21 12:51 - Current Medications Current Medications: Current Medications Generic Name Dose Route Start Last Admin Trade Name Freq PRN Reason Stop Dose Admin Calcium Carbonate/Glycine 500 mg 01/06/22 21:00 01/08/22 21:19 Calcium Carbonate Chew 500 Mg Tablet PO 500 mg BID FREDDIE Administration Cholecalciferol 50 mcg 01/07/22 09:00 01/08/22 08:38 Cholecalciferol 25 Mcg Tablet PO 50 mcg DAILY FREDDIE Administration Docusate Sodium 250 - 500 mg 01/03/22 09:00 01/08/22 08:38 Docusate Sodium 250 Mg Capsule PO 250 mg DAILY FREDDIE Administration Gabapentin 300 mg 01/08/22 13:00 01/09/22 06:27 Gabapentin 300 Mg Capsule PO 300 mg TID FREDDIE Administration Hydromorphone HCl 0.5 mg 12/31/21 15:33 01/09/22 04:43 Hydromorphone 0.5 Mg/0.5 Ml Syringe IVP 0.5 mg Q2H PRN Administration Pain 8 to 10 Ibuprofen 600 mg 01/03/22 14:00 01/09/22 06:27 Ibuprofen 600 Mg Tablet PO 600 mg Q8HR FREDDIE Administration Multivitamins/Minerals 1 tab 01/08/22 17:00 01/08/22 17:49 Multivitamin W/Minerals Tablet PO 1 tab DAILYWM FREDDIE Administration Ondansetron HCl 4 mg 12/31/21 15:33 12/31/21 18:06 Ondansetron Odt 4 Mg Tablet TL 4 mg Q6HR PRN Administration Nausea / Vomiting Ondansetron HCl 4 mg 12/31/21 15:33 01/02/22 06:35 Ondansetron 4 Mg/2 Ml Vial IVP 4 mg Q6HR PRN Administration Nausea / Vomiting Oxycodone HCl 5 mg 12/31/21 15:33 01/06/22 13:00 Oxycodone 5 Mg Tablet PO 5 mg Q4HR PRN Administration Pain 5 to 7 Oxycodone HCl 10 mg 12/31/21 15:33 01/09/22 04:57 Oxycodone 5 Mg Tablet PO 10 mg Q4HR PRN Administration Pain 8 to 10 Polyethylene Glycol 17 gm 01/01/22 09:00 01/08/22 08:38 Polyethylene Glycol 3350 17 Gm Packet PO 17 gm DAILY FREDDIE Administration Senna 8.6 - 17.2 mg 01/03/22 09:00 01/08/22 08:38 Senna 8.6 Mg Tablet PO 8.6 mg DAILY FREDDIE Administration Sodium Chloride 10 ml 12/31/21 15:33 01/09/22 04:43 Sodium Chloride Flush 0.9% 10 Ml Syringe IVP 10 ml PRN PRN Administration NEEDED PER PROVIDER ORDERS Sodium Chloride 10 ml 12/31/21 17:00 01/08/22 21:18 Sodium Chloride Flush 0.9% 10 Ml Syringe IVP 10 ml 0100,0900,1700 FREDDIE Administration - Physical Exam General Appearance: positive: No acute distress Neck: positive: Nml inspection Respiratory: positive: Other (Breathing well on 2L NC. Right chest breath sounds diminished.) Cardiovascular: positive: Regular rate & rhythm Abdomen: positive: Non-tender Extremities: positive: Nml appearance Neurologic/Psychiatric: positive: Oriented x3 Impression/Plan - Problem List Problem List: Right rib fractures and traumatic pneumothorax: Chest tube removed 01/06 Continued pain. Received erector spinae block yesterday which helped a bit. Will continued current pain control with scheduled tylenol, PRN oxy, PRN dilaudid, and add lidocaine patch. If Creatinine okay will stop ibuprofen and start toradol. Continued O2 requirement and RLL haziness (effusion versus opacity) on CXR. Continue pulm toilet and dose of lasix if Cr okay. If O2 requirement continues, will obtain chest CT scan and if effusion will consider thoracentesis.
[2022-01-09 09:07] LABS: BASOPHILS % (AUTO) 0.3 %; EOSINOPHILS % (AUTO) 0.1 %; HCT - HEMATOCRIT 39.1 % (42.0-52.0); LYMPHOCYTES % (AUTO) 2.6 %; MEAN CORPUSCULAR HEMOGLOBIN 29.4 pg (27.0-31.0); MEAN CORPUSCULAR HGB CONC 33.2 g/dL (32.0-36.0); MEAN CORPUSCULAR VOLUME 88.5 fL (80.0-94.0); MEAN PLATELET VOLUME 8.7 fL (7.4-11.4); NEUTROPHILS % (AUTO) 90.3 %; PLT - PLATELET COUNT 364 10^3/uL (130-450); RED BLOOD COUNT 4.42 10^6/uL (4.70-6.10); RED CELL DISTRIBUTION WIDTH 12.6 % (12.0-15.0)
[2022-01-09 09:10] LABS: ABNORMAL LYMPHS % (MANUAL) 0 %
[2022-01-09] MEDS: CALCIUM CARBONATE CHEW 500 MG TABLET PO SCH ×2 (09:10→21:31)
[2022-01-09] MEDS: MULTIVITAMIN W/MINERALS TABLET PO SCH (09:10)
[2022-01-09] MEDS: CHOLECALCIFEROL 25 MCG TABLET PO SCH (09:10)
[2022-01-09 09:11] LABS: INR 1.9 (0.8-1.2); PT - PROTHROMBIN TIME 21.2 secs (9.9-12.6)
[2022-01-09] MEDS: SENNA 8.6 MG TABLET PO SCH (09:11)
[2022-01-09] MEDS: DOCUSATE SODIUM 250 MG CAPSULE PO SCH (09:11)
[2022-01-09] MEDS: polyethylene glycoL 3350 17 GM PACKET PO SCH (09:11)
[2022-01-09] MEDS: SODIUM CHLORIDE FLUSH 0.9% 10 ML SYRINGE IVP SCH ×2 (09:11→17:41)
[2022-01-09 09:22] LABS: CALCIUM 9.4 mg/dL (8.5-10.3); CREATININE 1.2 mg/dL (0.6-1.2); POTASSIUM 4.3 mmol/L (3.5-5.0)
[2022-01-09 09:26] LABS: BAND NEUTROPHILS % (MANUAL) 7 %; BASOPHILS # (MANUAL) 0.2 10^3/uL (0-0.1); BASOPHILS % (MANUAL) 1 %; DIFFERENTIAL COMMENT MANUAL DIFFERENTIAL; EOSINOPHILS # (MANUAL) 0.5 10^3/uL (0-0.7); LYMPHOCYTES # (MANUAL) 0.9 10^3/uL (1.5-3.5); LYMPHOCYTES % (MANUAL) 4 %; MONOCYTES # (MANUAL) 1.4 10^3/uL (0.0-1.0); PLATELET ESTIMATE, MANUAL NORMAL (130-450,000) (NORMAL); PLATELET MORPHOLOGY NORMAL APPEARANCE (NORMAL); RBC MORPHOLOGY (MULTIPLE) NORMAL APPEARANCE (NORMAL)
[2022-01-09] MEDS: ONDANSETRON 4 MG/2 ML VIAL IVP PRN ×2 (09:57→16:01)
[2022-01-09] MEDS: LIDOCAINE PATCH 5% TOP PRN (10:34)
[2022-01-09] MEDS ORDERED: PHYTONADIONE 10 MG/ML AMP PO ONE (11:43)
[2022-01-09] MEDS ORDERED: CHERRY SYRUP 10 ML UDC PO ONE (11:43)
[2022-01-09] MEDS ORDERED: FUROSEMIDE 20 MG/2 ML VIAL IVP SCH (12:00)
[2022-01-09] MEDS: ENOXAPARIN 40 MG/0.4 ML SYRINGE SUBQ SCH (12:46)
[2022-01-09] MEDS: ACETAMINOPHEN 500 MG TABLET PO SCH ×3 (12:46→21:30)
--- NOTE | 2022-01-09 13:20 | CT Report ---
PROCEDURE: CHEST WO INDICATIONS: evaluate for pleural effusion or abscess TECHNIQUE: Noncontrast 1mm axial images were acquired from the pulmonary apices to the posterior costophrenic an gles. Axial 5 mm soft tissue kernel reconstructions were performed as well as 8 mm axial MIP and cor onal and sagittal 5 mm reformations. For radiation dose reduction, the following was used: automate d exposure control, adjustment of mA and/or kV according to patient size. COMPARISON: CT chest 12/31/2021 FINDINGS: Image quality: Excellent. Lungs and pleura: There is a mild to moderate right pleural effusion with areas of loculation as wel l as superimposed consolidative opacity within the bases. Previous pneumothorax has resolved. There a re no areas of pleural enhancement. Mediastinum: Heart size is normal. Trace pericardial effusion. No mediastinal adenopathy by size cr iteria. 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 Esophagus is normal in caliber. No hiatal hernia. Bones and chest wall: Multiple bilateral right rib fractures are again noted. No vertebral body compr ession fractures. No axillary or supraclavicular adenopathy by size criteria. The thyroid is normal in size and there are no incidental findings. There remains subcutaneous emphysema within the chest wall soft tissues, improved compared to prior exam. Abdomen: Nonobstructing bilateral renal calculi are noted. Otherwise, visualized upper abdominal kofi id organs and bowel loops appear normal in the absence of contrast. IMPRESSION: Interval resolution of previous right pneumothorax. Unchanged appearance of multiple right rib fractures. Mild to moderate right effusion with areas of superimposed consolidation suggestive atelectasis and/o r pneumonia, mildly progressive compared to prior exam. No imaging evidence of empyema or abscess. Persistent although improving appearance of subcutaneous emphysema. CLINICAL RECOMMENDATION STATEMENTS: In patients <35 years with an ITN detected on CT, MRI, or extrathyroidal ultrasound, the Committee re commends further evaluation with dedicated thyroid ultrasound if the nodule is "e1 cm and has no susp icious imaging features, and if the patient has normal life expectancy. In patients "e35 years with an ITN detected on CT, MRI, or extrathyroidal ultrasound, the Committee r ecommends further evaluation with dedicated thyroid ultrasound if the nodule is "e1.5 cm and has no s uspicious imaging features, and if the patient has normal life expectancy. (ACR, 2014) Reviewed by: Cyndi Cerrato MD on 01/09/2022 1:18 PM PST Approved by: Cyndi Cerrato MD on 01/09/2022 1:18 PM PST Station ID: [id number]
--- NOTE | 2022-01-09 13:28 | CT Report ---
PROCEDURE: Abdomen/Pelvis WO INDICATIONS: chest trauma TECHNIQUE: Noncontrast 5 mm thick sections acquired from the diaphragms to the symphysis. 5 mm coronal and sagi ttal reformats were then performed. For radiation dose reduction, the following was used: automated exposure control, adjustment of mA and/or kV according to patient size. COMPARISON: CT chest 12/31/2021, 01/09/2022 FINDINGS: Image quality: Excellent. ABDOMEN: Lung bases: Mild to moderate effusion with superimposed consolidation is present. Heart size is faisal l. Solid organs: Liver and spleen are normal in size. Gallbladder is unremarkable Pancreas is normal in contours. No adrenal nodules. Kidneys are normal in size, without hydronephrosis. There are 6 r enal calculi are identified within the left and right kidney bilaterally. They are subcentimeter in s ize ranging from 2 to 4 mm. There is no obstruction. Peritoneum and bowel: Unenhanced bowel loops demonstrate normal wall thickness and caliber. No free fluid or air. Nodes and vessels: No retroperitoneal or mesenteric adenopathy by size criteria. Aorta and inferior vena cava are normal in caliber. Miscellaneous: No ventral hernias. Persistent subcutaneous emphysema within the right chest wall im proving. PELVIS: Genitourinary: Bladder wall thickness is normal. Miscellaneous: No inguinal hernias or adenopathy. Bones: No suspicious bony lesions. No vertebral body compression fractures. Multiple right rib fra ctures. Please see CT chest report. IMPRESSION: Mild to moderate right pleural effusion increased compared to prior exam. Please see CT chest report of 01/09/2022 for further details. Nonobstructing renal calculi. Multiple right rib fractures and improving right chest wall subcutaneous emphysema. Reviewed by: Cyndi Cerrato MD on 01/09/2022 1:27 PM PST Approved by: Cyndi Cerrato MD on 01/09/2022 1:27 PM PST Station ID: [id number]
[2022-01-10] MEDS: SODIUM CHLORIDE FLUSH 0.9% 10 ML SYRINGE IVP SCH ×3 (00:29→19:31)
[2022-01-10] MEDS: oxyCODONE 5 MG TABLET PO PRN ×4 (02:30→15:41)
[2022-01-10] MEDS: SODIUM CHLORIDE FLUSH 0.9% 10 ML SYRINGE IVP PRN ×4 (04:23→20:30)
[2022-01-10] MEDS: HYDROmorphone 0.5 MG/0.5 ML SYRINGE IVP PRN ×4 (04:23→20:31)
[2022-01-10 05:21] LABS: BASOPHILS % (AUTO) 0.3 %; EOSINOPHILS % (AUTO) 0.6 %; HCT - HEMATOCRIT 36.7 % (42.0-52.0); HGB - HEMOGLOBIN 12.6 g/dL (14.0-18.0); LYMPHOCYTES % (AUTO) 2.7 %; MEAN CORPUSCULAR HEMOGLOBIN 30.1 pg (27.0-31.0); MEAN CORPUSCULAR HGB CONC 34.3 g/dL (32.0-36.0); MEAN CORPUSCULAR VOLUME 87.6 fL (80.0-94.0); MEAN PLATELET VOLUME 8.3 fL (7.4-11.4); MONOCYTES % (AUTO) 8.3 %; NEUTROPHILS % (AUTO) 87.4 %; PLT - PLATELET COUNT 399 10^3/uL (130-450); RED BLOOD COUNT 4.19 10^6/uL (4.70-6.10); RED CELL DISTRIBUTION WIDTH 12.8 % (12.0-15.0)
[2022-01-10] MEDS: ACETAMINOPHEN 500 MG TABLET PO SCH ×2 (05:21→15:38)
[2022-01-10] MEDS: GABAPENTIN 300 MG CAPSULE PO SCH ×2 (05:21→15:40)
[2022-01-10] MEDS: IBUPROFEN 600 MG TABLET PO SCH ×2 (05:21→15:38)
[2022-01-10 05:24] LABS: ABNORMAL LYMPHS % (MANUAL) 0 %
[2022-01-10 05:36] LABS: BILIRUBIN,DIRECT 0.5 mg/dL (0.1-0.5); BILIRUBIN,TOTAL 1.5 mg/dL (0.2-1.0); CALCIUM 9.3 mg/dL (8.5-10.3); CREATININE 1.3 mg/dL (0.6-1.2); POTASSIUM 4.4 mmol/L (3.5-5.0); TOTAL PROTEIN 6.5 g/dL (6.7-8.2)
[2022-01-10 05:54] LABS: BAND NEUTROPHILS % (MANUAL) 6 %; DIFFERENTIAL COMMENT MANUAL DIFFERENTIAL; LYMPHOCYTES # (MANUAL) 0.6 10^3/uL (1.5-3.5); LYMPHOCYTES % (MANUAL) 3 %; NEUTROPHILS # (MANUAL) 17.4 10^3/uL (1.5-6.6); PLATELET ESTIMATE, MANUAL NORMAL (130-450,000) (NORMAL); PLATELET MORPHOLOGY NORMAL APPEARANCE (NORMAL); RBC MORPHOLOGY (MULTIPLE) NORMAL APPEARANCE (NORMAL); WBC MORPHOLOGY (MULTIPLE) NORMAL APPEARANCE (NORMAL)
[2022-01-10] MEDS ORDERED: CHERRY SYRUP 10 ML UDC PO ONE (07:35)
[2022-01-10] MEDS ORDERED: PHYTONADIONE 10 MG/ML AMP PO ONE (07:35)
[2022-01-10] MEDS: MULTIVITAMIN W/MINERALS TABLET PO SCH (08:05)
[2022-01-10] MEDS: CHOLECALCIFEROL 25 MCG TABLET PO SCH (08:05)
[2022-01-10] MEDS: CALCIUM CARBONATE CHEW 500 MG TABLET PO SCH ×2 (08:05→20:07)
[2022-01-10] MEDS: DOCUSATE SODIUM 250 MG CAPSULE PO SCH (08:06)
[2022-01-10] MEDS: polyethylene glycoL 3350 17 GM PACKET PO SCH (08:06)
[2022-01-10] MEDS: SENNA 8.6 MG TABLET PO SCH (08:06)
[2022-01-10] MEDS: LIDOCAINE PATCH 5% TOP PRN (08:11)
[2022-01-10] MEDS: INSULIN ASPART 300 UNIT/3 ML PEN SUBQ SCH ×3 (08:16→19:32)
--- NOTE | 2022-01-10 09:19 | XRAY Report ---
PROCEDURE: Chest 1 View X-Ray INDICATIONS: follow up effusion TECHNIQUE: One view of the chest was acquired. COMPARISON: 01/08/2022 FINDINGS: Surgical changes and devices: None. Lungs and pleura: Interval decrease in [id number] right pleural effusion. No pneumothorax s een. Patchy bibasilar opacities more pronounced on the right. This likely represents atelectasis. Mediastinum: Mediastinal contours appear stable. Heart size is normal. Bones and chest wall: Lateral right rib fractures are again noted. Interval decrease in amount of ri ght chest wall subcutaneous soft tissue emphysema. No suspicious bony lesions. Overlying soft tissue s appear unremarkable. IMPRESSION: Interval decrease in size of now [id number] right pleural effusion. No pneumothorax. Persis tent but decreased right chest wall subcutaneous soft tissue emphysema. Redemonstration of mildly dis placed lateral right rib fractures. Reviewed by: Jose Pope MD on 01/10/2022 8:18 AM [place] Approved by: Jose Pope MD on 01/10/2022 8:18 AM [facility] Station ID: [id number]
--- NOTE | 2022-01-10 09:27 | PROVIDER PROGRESS NOTE ---
Subjective - General Admit Date: 01/01/22 Procedure Date: 01/02/22 Post Op Days: 8 - Other Other Information/Narrative: NAEO. Feeling ok today. Pain decently controlled and feels breathing is easy. Poor appetite. Objective - Patient Data Reviewed Vital Signs: Yes Vital Signs: Vital Signs x48h Temp Pulse Resp BP Pulse Ox 01/10/22 04:15 37.1 C 87 22 130/88 H 91 L Intake & Output: Intake and Output Totals x24h 01/08/22 01/09/22 01/10/22 23:59 23:59 23:59 Intake Total 1460 2170 680 Output Total 500 400 Balance 960 1770 680 - Lab Results Lab Results: 01/10/22 05:14 01/10/22 05:14 Other Lab Results: Lab Results x24hrs 01/10/22 01/10/22 01/10/22 Range/Units 05:14 05:14 05:14 WBC 20.0 H (4.8-10.8) x10^3/uL RBC 4.19 L (4.70-6.10) 10^6/uL Hgb 12.6 L (14.0-18.0) g/dL Hct 36.7 L (42.0-52.0) % MCV 87.6 (80.0-94.0) fL MCH 30.1 (27.0-31.0) pg MCHC 34.3 (32.0-36.0) g/dL RDW 12.8 (12.0-15.0) % Plt Count 399 (130-450) 10^3/uL MPV 8.3 (7.4-11.4) fL Neut # (Auto) Not Reportable Lymph # (Auto) Not Reportable [place] # (Auto) Not Reportable Eos # (Auto) Not Reportable Baso # (Auto) Not Reportable Absolute Nucleated RBC Not Reportable Total Counted 100 Band Neuts % (Manual) 6 (0 - 10) % Abnorm Lymph % (Manual) 0 % Nucleated RBC % Not Reportable Neutrophils # (Manual) 17.4 H (1.5-6.6) 10^3/uL Lymphocytes # (Manual) 0.6 L (1.5-3.5) 10^3/uL Monocytes # (Manual) 2.0 H (0.0-1.0) 10^3/uL Eosinophils # (Manual) 0.0 (0-0.7) 10^3/uL Basophils # (Manual) 0.0 (0-0.1) 10^3/uL Differential Comment MANUAL DIFFERENTIAL WBC Morphology NORMAL APPEARANCE (NORMAL) Platelet Estimate NORMAL (130-450,000) (NORMAL) Platelet Morphology NORMAL APPEARANCE (NORMAL) RBC Morph Micro Appear NORMAL APPEARANCE (NORMAL) PT 22.0 H (9.9-12.6) secs INR 2.0 H (0.8-1.2) Sodium 133 L (135-145) mmol/L Potassium 4.4 (3.5-5.0) mmol/L Chloride 92 L (101-111) mmol/L Carbon Dioxide 29 (21-32) mmol/L Anion Gap 12.0 (6-13) BUN 36 H (6-20) mg/dL Creatinine 1.3 H (0.6-1.2) mg/dL Estimated GFR (MDRD) 55 L (>89) Glucose 171 H (70-100) mg/dL Calcium 9.3 (8.5-10.3) mg/dL Total Bilirubin 1.5 H (0.2-1.0) mg/dL Direct Bilirubin 0.5 (0.1-0.5) mg/dL AST 108 H (10-42) IU/L ALT 116 H (10-60) IU/L Alkaline Phosphatase 80 (42-121) IU/L Total Protein 6.5 L (6.7-8.2) g/dL Albumin 3.0 L (3.2-5.5) g/dL Globulin 3.5 (2.1-4.2) g/dL 01/09/22 Range/Units 08:48 WBC (4.8-10.8) x10^3/uL RBC (4.70-6.10) 10^6/uL Hgb (14.0-18.0) g/dL Hct (42.0-52.0) % MCV (80.0-94.0) fL MCH (27.0-31.0) pg MCHC (32.0-36.0) g/dL RDW (12.0-15.0) % Plt Count (130-450) 10^3/uL MPV (7.4-11.4) fL Neut # (Auto) Not Reportable Lymph # (Auto) Not Reportable [place] # (Auto) Not Reportable Eos # (Auto) Not Reportable Baso # (Auto) Not Reportable Absolute Nucleated RBC Not Reportable Total Counted 100 Band Neuts % (Manual) 7 (0 - 10) % Abnorm Lymph % (Manual) 0 % Nucleated RBC % Not Reportable Neutrophils # (Manual) 20.0 H (1.5-6.6) 10^3/uL Lymphocytes # (Manual) 0.9 L (1.5-3.5) 10^3/uL Monocytes # (Manual) 1.4 H (0.0-1.0) 10^3/uL Eosinophils # (Manual) 0.5 (0-0.7) 10^3/uL Basophils # (Manual) 0.2 H (0-0.1) 10^3/uL Differential Comment MANUAL DIFFERENTIAL WBC Morphology (NORMAL) Platelet Estimate NORMAL (130-450,000) (NORMAL) Platelet Morphology NORMAL APPEARANCE (NORMAL) RBC Morph Micro Appear NORMAL APPEARANCE (NORMAL) PT (9.9-12.6) secs INR (0.8-1.2) Sodium (135-145) mmol/L Potassium (3.5-5.0) mmol/L Chloride (101-111) mmol/L Carbon Dioxide (21-32) mmol/L Anion Gap (6-13) BUN (6-20) mg/dL Creatinine (0.6-1.2) mg/dL Estimated GFR (MDRD) (>89) Glucose (70-100) mg/dL Calcium (8.5-10.3) mg/dL Total Bilirubin (0.2-1.0) mg/dL Direct Bilirubin (0.1-0.5) mg/dL AST (10-42) IU/L ALT (10-60) IU/L Alkaline Phosphatase (42-121) IU/L Total Protein (6.7-8.2) g/dL Albumin (3.2-5.5) g/dL Globulin (2.1-4.2) g/dL - Imaging Results Radiology Imaging: positive: See rad report (CT 01/09 showing moderate pleural effusion with underlying consolidation c/f pneumia vs atelectasis CXR 01/10 showing interval decrease in size of right pleural effusion) - Current Medications Current Medications: Current Medications Generic Name Dose Route Start Last Admin Trade Name Freq PRN Reason Stop Dose Admin Acetaminophen 1,000 mg 01/09/22 13:00 01/10/22 05:21 Acetaminophen 500 Mg Tablet PO 1,000 mg Q8HR FREDDIE Administration Calcium Carbonate/Glycine 500 mg 01/06/22 21:00 01/10/22 08:05 Calcium Carbonate Chew 500 Mg Tablet PO 500 mg BID FREDDIE Administration Cholecalciferol 50 mcg 01/07/22 09:00 01/10/22 08:05 Cholecalciferol 25 Mcg Tablet PO 50 mcg DAILY FREDDIE Administration Docusate Sodium 250 - 500 mg 01/03/22 09:00 01/10/22 08:06 Docusate Sodium 250 Mg Capsule PO 250 mg DAILY FREDDIE Administration Enoxaparin Sodium 40 mg 01/09/22 12:00 01/09/22 12:46 Enoxaparin 40 Mg/0.4 Ml Syringe SUBQ 40 mg DAILY FREDDIE Administration Gabapentin 300 mg 01/08/22 13:00 01/10/22 05:21 Gabapentin 300 Mg Capsule PO 300 mg TID FREDDIE Administration Hydromorphone HCl 0.5 mg 12/31/21 15:33 01/10/22 05:53 Hydromorphone 0.5 Mg/0.5 Ml Syringe IVP 0.5 mg Q2H PRN Administration Pain 8 to 10 Ibuprofen 600 mg 01/03/22 14:00 01/10/22 05:21 Ibuprofen 600 Mg Tablet PO 600 mg Q8HR FREDDIE Administration Insulin Aspart 1 - 5 unit 01/10/22 08:00 01/10/22 08:16 Insulin Aspart 300 Unit/3 Ml Pen SUBQ 1 unit 0800,1200,1700,2100 [facility] Administration Protocol Lidocaine 1 patch 01/09/22 08:58 01/10/22 08:11 Lidocaine Patch 5% TOP 1 patch DAILY PRN Administration PAIN Multivitamins/Minerals 1 tab 01/08/22 17:00 01/10/22 08:05 Multivitamin W/Minerals Tablet PO 1 tab DAILYWM FREDDIE Administration Ondansetron HCl 4 mg 12/31/21 15:33 12/31/21 18:06 Ondansetron Odt 4 Mg Tablet TL 4 mg Q6HR PRN Administration Nausea / Vomiting Ondansetron HCl 4 mg 12/31/21 15:33 01/09/22 16:01 Ondansetron 4 Mg/2 Ml Vial IVP 4 mg Q6HR PRN Administration Nausea / Vomiting Oxycodone HCl 5 mg 12/31/21 15:33 01/06/22 13:00 Oxycodone 5 Mg Tablet PO 5 mg Q4HR PRN Administration Pain 5 to 7 Oxycodone HCl 10 mg 12/31/21 15:33 01/10/22 08:07 Oxycodone 5 Mg Tablet PO 10 mg Q4HR PRN Administration Pain 8 to 10 Polyethylene Glycol 17 gm 01/01/22 09:00 01/10/22 08:06 Polyethylene Glycol 3350 17 Gm Packet PO 17 gm DAILY FREDDIE Administration Senna 8.6 - 17.2 mg 01/03/22 09:00 01/10/22 08:06 Senna 8.6 Mg Tablet PO 8.6 mg DAILY FREDDIE Administration Sodium Chloride 10 ml 12/31/21 15:33 01/10/22 05:53 Sodium Chloride Flush 0.9% 10 Ml Syringe IVP 10 ml PRN PRN Administration NEEDED PER PROVIDER ORDERS Sodium Chloride 10 ml 12/31/21 17:00 01/10/22 08:07 Sodium Chloride Flush 0.9% 10 Ml Syringe IVP 10 ml 0100,0900,1700 FREDDIE Administration - Physical Exam General Appearance: positive: No acute distress Eyes Bilateral: positive: EOMI Respiratory: positive: No respiratory distress Cardiovascular: positive: Regular rate & rhythm Abdomen: positive: Non-tender Skin: positive: Warm, Dry Extremities: positive: No pedal edema Neurologic/Psychiatric: positive: Oriented x3 Impression/Plan - Problem List Problem List: Right rib fractures and traumatic pneumothorax: Chest tube removed 01/06 Pain control decent. Will continued current pain control with scheduled tylenol, PRN oxy, PRN dilaudid, and add lidocaine patch. Continued O2 requirement and RLL haziness on CXR, CT 01/09 with simple effusion, CXR this am improved afer lasix yesterday. Continue pulm toilet. Hold off on further lasix given slight Cr bump. INR found to be elevated, possible vit K deficiency given poor PO. 1 dose vit K given yesterday, INR still 2 today, giving second dose per pharmacy. Denies hx EtOH abuse or hepatitis. Med consult to eval etiology of elevated INR. Hold off on thora given improved CXR and therapeutic INR. Yemi Stubbs MD General Surgery
[2022-01-10] MEDS: ENOXAPARIN 40 MG/0.4 ML SYRINGE SUBQ SCH (11:30)
[2022-01-10 12:20] LABS: ESTIMATED AVERAGE GLUCOSE 134 mg/dL (70-100); HEMOGLOBIN A1c% 6.3 % (4.27-6.07)
--- NOTE | 2022-01-10 15:53 | CONSULTATION NOTE ---
Referring Provider Name of Referring Provider:: [facility] Consult Date: 01/10/22 Chief Complaint - Chief Complaint Chief Complaint: Rib fx after fall, pneumothorax resolved, new elev INR and hyperglycemia History of Present Illness - History Obtained From History obtained from: Chart review and the patient - History of Present Illness HPI Comment/Other: This is a 71-year-old white male with a history of high blood pressure on Telm esartan/HCTZ. There is a remote history of elevated liver function tests that he was told was caused by taking excessive Tylenol. The patient was admitted 11 days ago after he fell off a ladder 2 days before that and sustained 12 rib fractures on the R. He has been on the surgical/ trauma service. There was a pneumothorax that developed after admission and he needed a chest tube inserted. The chest tube has been removed several days ago. Patient has had continued pleuritic pain requiring treatment with iv narcotics, NSAIDs, a spinal block done by anesthesia, scheduled Tylenol and topical lidocaine patch. He has been unable to use incentive spirometry adequately because of the severe pleuritic pain. Yesterday a chest x-ray was done, whic was several days after the chest tube was removed, and this showed new pleural effusions. The patient received Lasix and there has been slight improvement in the pleural effusions. A CT scan was done that showed possible infiltrate versus atelectasis under the pleural effusions. No new antibiotics were started. He had lab test done at admission 12/31/21, and then none until yesterday 01/09/22, when white count returned at 23 with 7% Bands. Today the white count is 20 with 6% Bands. His INR was 1.9 yesterday and he got a dose of vitamin K. His nurse reports that he had a cough today with production of sputum and a blood clot. Today's labs were rechecked and show elevation of INR at 2.0 and newly elevated LFTs, which were normal at admission. He got a dose of vitamin K once more today. His serum glu is elevated in the 200's today, without being on steroids. His A1c came back at 6.3 today. Sliding scale insulin has been started. Today the was contacted and she requested she bring in his CPAP device. His history of having sleep apnea and being on CPAP was unknown until today. The reported details of his past history which included the elevation of liver function tests caused by Tylenol in the past. History - Past Medical History Cardiovascular: reports: Hypertension Respiratory: reports: Sleep apnea, CPAP use GI: reports: Hepatitis (Elevated LFTs from Tylenol use in the past) - Past Surgical History Ortho: reports: Shoulder arthroplasty (R side, in Oct 2021) - Family & Social History Family History: Mother: , Father: , Sister: Alive and Well (2 sisters & 3 daughters healthy), Other family: Alive and Well Living arrangement: At home Living Situation: With spouse/s.o. 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 No smoking or alcohol or drugs. - Substance History Use: Uses substance without health or social issues: NONE Meds/Allgy - Home Medications Home Medications: Ambulatory Orders Medication Instructions Recorded Confirmed Telmisartan/Hydrochlorothiazid 1 each PO DAILY 12/31/21 01/01/22 [Micardis Hct 40-12.5 mg Tablet] - Allergies Allergies/Adverse Reactions: Allergies Allergy/AdvReac Type Severity Reaction Status Date / Time chlorpromazine Allergy Unknown Verified 12/31/21 21:41 [From Thorazine] Penicillins Allergy Unknown Verified 12/31/21 12:07 Review of Systems - Musculoskeletal Musculoskeletal: reports: Other (Hair line fracture foot) - All Other Systems All Other Systems: reports: Reviewed and negative Exam - Vital Signs Reviewed Vital Signs: Yes Vital Signs: Vital Signs x48h Temp Pulse Resp BP Pulse Ox 01/10/22 12:05 37.0 C 96 18 120/72 95 01/10/22 09:00 36.6 C 90 20 116/82 H 95 - Physical Exam General Appearance: positive: Alert (Male of descent) Eyes Bilateral: positive: Normal inspection Neck: positive: Trachea midline Respiratory: positive: Breath sounds nml Cardiovascular: positive: Regular rate & rhythm Abdomen: positive: Non-tender Skin: positive: Warm Extremities: positive: Non-tender, No pedal edema Neurologic/Psychiatric: positive: Oriented x3 (non-focal) Conclusion/Plan - Problem List (1) Multiple rib fractures Conclusion/Plan: This is being managed by the general surgery/trauma service. He is requiring multiple ways to manage his pain. Continue with pain management and incentive spirometry to avoid atelectasis. As he is now developing multiorgan system problems, consider transfer to a tertiary care center and specialist support. Qualifiers: Encounter type: subsequent encounter Fracture type: closed Laterality: right (2) Pleural effusion Conclusion/Plan: This was felt to be traumatic, possibly bloody, related to the recent rib fractures and pneumothorax. Because no x-rays were done in the interim, this may also be due to pneumonia with a parapneumonic effusion, given the finding of consolidation along with elevated white blood count. Recommend obtaining a sputum culture, blood culture and respiratory PCR. Recommend starting empiric IV antibiotics to cover a hospital-acquired pneumonia. Start probiotics. Start Mucinex to help expectorate. (3) Leukocytosis Conclusion/Plan: White blood count was normal at admission, no labs were checked for many days, them the CBC done yesterday showed white count very elevated at 23 with a left shift and 7% bands. Part of this may be from stress and demargination but an infection is highly suspected because of the bandemia. Recommend obtaining a Lactic acid level, sputum culture, blood culture and respiratory PCR. Check a U/A with cx if indicated. Recommend starting empiric IV antibiotics to cover a hospital-acquired pneumonia, using iv Cefepime (due to his PCN allergy), iv Vanco and iv Levaquin. Start probiotics. Remain in the ICU. I contacted the by phone and gave her an update of his multi-organ problems. (4) Ascending aortic aneurysm Conclusion/Plan: This was noted on CT chest and measured at 4.5 cm. This needs further f/u (5) Elevated LFTs Conclusion/Plan: LFTs were normal at admission. There were no LFTs done yesterday, these were repeated only today. Etiology is most likely the Tylenol use that was scheduled and given [id number] for the past day but other etiologies could be shock liver or from infection. Recommend giving no hepatotoxins and recommend stopping the Tylenol. Recommend abdominal CT to evaluate for pathology such as liver trauma, abscess, portal vein thrombosis. Avoid hypotension. Follow LFTs daily (6) Elevated INR Conclusion/Plan: There was no INR done at baseline therefore nothing for comparison. The most likely etiology is poor synthesis related to liver function abnormality. Agree with administering vitamin K to reverse the elevated INR because there is documented bleeding in his sputum and suspected bleeding into the pleural effusions. No need to give sq Lovenox while the INR is elevated. Follow INR daily until it is normal. (7) GABE (acute kidney injury) Conclusion/Plan: His BUN/creatinine were normal at admission. There were no labs done for 9 days and yesterday labs showed prerenal azotemia with BUN/creatinine ratio greater than 20. Today he has GABE with BUN/creatinine 36/1.3. This is most likely related to intravascular volume depletion, since he has had very poor p.o. intake throughout this hospital stay plus from getting Lasix IV yesterday. Recommend avoiding nephrotoxins. Begin TPN for fluid and calorie support. Nutrition consult for this. Adjust medications based on his renal function. Follow BMP daily Stop the Motrin, if his creatinine continues to rise (8) Hyperglycemia Conclusion/Plan: This is most likely related to stress (high adrenaline and cortisol) during this hospitalization and a developing infection in a pt who was probably a pre- diabetic. The patient was not a known diabetic before hospitalization. His A1c came back at 6.3 which is within normal range. Agree with starting sliding scale insulin and fingerstick checks and instituting hypoglycemia protocol. Recommend a diabetic diet and Nutrition consult. (9) Pneumothorax Conclusion/Plan: Resolved and chest tube was removed Qualifiers: Pneumothorax type: traumatic Encounter type: subsequent encounter Qualified Code(s): S27.0XXD - Traumatic pneumothorax, subsequent encounter (10) Hx of essential hypertension Conclusion/Plan: He was only on telmisartan/HCTZ at home, no other medications. While hospitalized, his blood pressure has been in a normal range. This is even without his blood pressure meds. This suggests continued volume depletion therefore. (11) ARCELIA on CPAP Conclusion/Plan: Agree with using his home CPAP device while here. - Lab Results Fish Bones: 01/10/22 05:14 01/10/22 05:14
[2022-01-10] MEDS ORDERED: levoFLOXacin 750 MG/150 ML 750 MG/150 ML BAG IV SCH (17:00)
[2022-01-10] MEDS ORDERED: SACCHAROMYCES BOULARDII 250 MG CAPSULE PO SCH (17:00)
[2022-01-10] MEDS ORDERED: CEFEPIME 2 GM in SODIUM CHLORIDE 0.9% MINIBAG 100 ML IV SCH (17:00)
[2022-01-10] MEDS ORDERED: SODIUM CHLORIDE 0.9% 1,000 ML IV ONE ×3 (17:45→18:56)
[2022-01-10] MEDS ORDERED: IOVERSOL 320 100 ML VIAL IVP ONE ×2 (17:47→18:53)
--- NOTE | 2022-01-10 17:48 | XRAY Report ---
PROCEDURE: Chest 1 View X-Ray INDICATIONS: Hematemesis, mid-back pain TECHNIQUE: One view of the chest was acquired. COMPARISON: Chest radiograph from earlier same day FINDINGS: Surgical changes and devices: None. Lungs and pleura: No pneumothorax. There is a linear density projecting over the right chest wall whi ch extends outside the chest wall. This likely represents skinfold artifact. Stable size of moderate sized right pleural effusion. Left lung appears clear. Patchy right basilar opacities likely represen ting compressive atelectasis. Mediastinum: Mediastinal contours appear normal. Heart size is stable. Bones and chest wall: No suspicious bony lesions. Overlying soft tissues appear unremarkable. Stab le appearance of right chest wall subcutaneous emphysema and displaced acute right lateral rib fractu res IMPRESSION: #1. Stable appearance of moderate-sized right pleural effusion. 2. Right chest wall subcutaneous soft tissue emphysema and moderately displaced acute lateral right r ib fractures. No definite pneumothorax seen. 3. Patchy right basilar opacities likely representing compressive atelectasis. Reviewed by: Jose Pope MD on 01/10/2022 4:47 PM AKST Approved by: Jose Pope MD on 01/10/2022 4:47 PM AKST Station ID: [id number]
[2022-01-10 17:55] LABS: BASOPHILS # (AUTO) 0.1 10^3/uL (0.0-0.1); BASOPHILS % (AUTO) 0.4 %; EOSINOPHILS # (AUTO) 0.1 10^3/uL (0.0-0.7); EOSINOPHILS % (AUTO) 0.3 %; HGB - HEMOGLOBIN 7.7 g/dL (14.0-18.0); LYMPHOCYTES # (AUTO) 2.2 10^3/uL (1.5-3.5); LYMPHOCYTES % (AUTO) 9.9 %; MEAN CORPUSCULAR HEMOGLOBIN 29.6 pg (27.0-31.0); MEAN CORPUSCULAR HGB CONC 32.1 g/dL (32.0-36.0); MEAN CORPUSCULAR VOLUME 92.3 fL (80.0-94.0); MEAN PLATELET VOLUME 9.1 fL (7.4-11.4); MONOCYTES # (AUTO) 2.6 10^3/uL (0.0-1.0); MONOCYTES % (AUTO) 11.8 %; NEUTROPHILS # (AUTO) 16.2 10^3/uL (1.5-6.6); NEUTROPHILS % (AUTO) 74.5 %; NRBC ABSOLUTE COUNT (AUTO) 0.07 x10^3/uL; NUCLEATED RED BLOOD CELLS AUTO 0.3 /100WBC; PLT - PLATELET COUNT 383 10^3/uL (130-450); RED CELL DISTRIBUTION WIDTH 12.9 % (12.0-15.0); WHITE BLOOD COUNT 21.8 x10^3/uL (4.8-10.8)
[2022-01-10 18:00] LABS: INR 2.1 (0.8-1.2); PT - PROTHROMBIN TIME 23.3 secs (9.9-12.6)
[2022-01-10] MEDS ORDERED: VANCOMYCIN INJ 2 GM in SODIUM CHLORIDE 0.9% 500 ML IV ONE (18:00)
[2022-01-10 18:01] LABS: SLIDE REVIEW? Indicated
[2022-01-10] MEDS ORDERED: fentaNYL 100 MCG/2 ML VIAL ONE (18:12)
[2022-01-10] MEDS ORDERED: fentaNYL 100 MCG/2 ML VIAL IVP STA (18:15)
--- NOTE | 2022-01-10 18:19 | ED Physician Documentation ---
ED Addendum - Addendum Addendum: 01/10/22 18:18 Called to the bedside by the hospitalist and the surgeon, Dr. Stubbs was also at the bedside. He had thrown up a large volume of right bright red blood and then become hemodynamically unstable. He did not have very good vascular access. Procedure note, central line: Verbal informed consent was obtained, risks including bleeding, infection, pneumothorax, arterial puncture, and need for surgery were discussed with the patient. The patient was prepped twice with Ch loraPrep. I wore cap, mask, gown, sterile gloves. Full sterile sheet was utilized. Using real-time ultrasound guidance the right internal jugular vein was accessed and using Seldinger technique a triple-lumen 7 Indian central line was placed in standard fashion and sutured into place without immediate complications. I looked at the prior CT of the chest, since he does not seem to have a medias tinal hematoma I doubt that the ascending aortic aneurysm is related to his acute GI bleed but he is going back to CT for angio protocol. 01/10/22 18:22 We noticed his INR was high, in discussion with the surgeon will go ahead and Prepare some Kcentra. The RN is also preparing to transfuse given his hemodynamic instability and significant drop in his H&H. 01/10/22 19:12 I accompanied the patient with the surgeon to the CT scanner. There is no obvious aortic dissection or injury on my "wet read." No evidence of intra- abdominal catastrophe. Accompanied him back to the ICU, given his hemodynamic instability surgeon asked me to place an arterial line: Procedure note right radial arterial line placement. Verbal consent was obtained and the right wrist was prepped with ChloraPrep and sterilely draped. Locally infiltrated with lidocaine with epinephrine and then using real-time ultrasound guidance a 20-gauge arterial catheter was advanced until an arterial flush and the Seldinger wire advanced and over that the arterial line advanced with excellent pulsatile flow and hooked to the transducer with appropriate arterial waveform. It was sutured into place and dressed. The patient blanca rated this very well. At this time I have transferred his care back to the primary team in critical but stable currently condition. Critical care time: 42 minutes spent in bedside care of the patient, conferring with the treating team about treatments of this gentleman and hemorrhagic shock. Critical care time is exclusive of central and arterial line placements.
[2022-01-10] MEDS ORDERED: PROTHROMBIN COMPLEX CONC 500 UNIT VIAL IVP STA (18:23)
[2022-01-10 18:38] LABS: DIFFERENTIAL COMMENT MANUAL=AUTO DIFF; PLATELET ESTIMATE, MANUAL NORMAL (130-450,000) (NORMAL); PLATELET MORPHOLOGY NORMAL APPEARANCE (NORMAL)
--- NOTE | 2022-01-10 18:42 | XRAY Report ---
PROCEDURE: Chest for Line Placement INDICATIONS: RIJ CVC TECHNIQUE: One view of the chest was acquired. COMPARISON: Prior study of same day. FINDINGS: SUPPORT DEVICES: Interval placement of a right IJ catheter with tip overlying the low SVC region. LUNGS/PLEURA: Persistent small to moderate right pleural effusion with adjacent atelectasis. The left lung is well aerated. No pneumothorax. MEDIASTINUM: The cardiomediastinal silhouette is within normal limits. BONES/SOFT TISSUES: Persistent right chest wall subcutaneous emphysema and right rib fracture. IMPRESSION: 1.Satisfactory appearance of the right IJ catheter. Reviewed by: Marquis Moon MD on 01/10/2022 6:40 PM PST Approved by: Marquis Moon MD on 01/10/2022 6:40 PM PST Station ID: [id number]
--- NOTE | 2022-01-10 19:34 | CT Report ---
PROCEDURE: ANGIO CHEST W/WO INDICATIONS: Aortic aneurysm w/ bloody emesis CONTRAST: IV CONTRAST: Isovue 300 ml: 100 PO CONTRAST: *NO PO CONTRAST TECHNIQUE: After the administration of intravenous contrast, 2 mm axial images were acquired from the pulmonary apices to the posterior costophrenic angles during the arterial phase. In addition, 1 mm lung kernel and 5 mm soft tissue kernel reconstructions were performed. 3-dimensional coronal oblique maximum int ensity projection (MIP) reformats, 8 mm axial MIP, and 5 mm coronal and sagittal MPR reformats were t hen performed through the thorax. For radiation dose reduction, the following was used: automated exp osure control, adjustment of mA and/or kV according to patient size. COMPARISON: January 09, 2022 FINDINGS: Thyroid: Homogeneous. Systemic arterial Vasculature: Dilatation of the ascending thoracic aorta, measuring up to 4.4 cm. No evidence of dissection. Pulmonary arterial vasculature: The pulmonary arterial vasculature demonstrates good contrast opacifi cation. No filling defect is appreciated to suggest pulmonary embolism. Heart: No cardiomegaly or pericardial effusion. Coronary artery calcification is seen Mediastinum/roge: Fluid distention of the esophagus, which is nonspecific. Lungs/pleura: Moderate right pleural effusion with atelectasis. The left lung is well aerated. No pne umothorax. Tracheobronchial tree: Patent. Bones: Displaced anterior and posterior fractures of the right second through ninth ribs. Chest wall: Right chest wall subcutaneous emphysema. IMPRESSION: 1.No CT evidence of aortic dissection or pulmonary embolism. 2.Moderate pleural effusion with adjacent atelectasis, slightly increased compared to the prior study . 3.Fluid distention of the esophagus, which may reflect reflux. 4.Displaced anterior and posterior fractures of the right second through ninth ribs. 5.Right chest wall subcutaneous emphysema. Reviewed by: Marquis Moon MD on 01/10/2022 7:32 PM PST Approved by: Marquis Moon MD on 01/10/2022 7:32 PM PST Station ID: [id number]
--- NOTE | 2022-01-10 19:39 | CT Report ---
PROCEDURE: ANGIO ABDOMEN/PELVIS W INDICATIONS: AORTIC ANEUR SUSPECT DISSECTION CONTRAST: IV CONTRAST: Isovue 300 ml: 100 PO CONTRAST: *NO PO CONTRAST TECHNIQUE: After the administration of intravenous contrast, 2.5 mm thick sections acquired from the diaphragm t o the symphysis. 10 mm maximum-intensity projection (MIP) reformats were then acquired. For radiati on dose reduction, the following was used: automated exposure control. COMPARISON: January 09, 2022 FINDINGS: Gallbladder: The gallbladder is distended with a smooth thin wall. Biliary tree: No intra-or extrahepatic biliary ductal dilatation. Liver: The liver demonstrates normal enhancement, size, and contour. Spleen: Normal contour. Atrophic. Pancreas: No contour deforming mass or inflammatory change. Adrenals: Normal size without masses. Kidneys/ureters: Symmetric enhancement without evidence of obstructive uropathy. Bilateral nephrolith iasis. Vasculature: Aorta: No aneurysm or dissection. Vasculature: Patent. Superior mesenteric artery: Patent. Renal arteries: Patent. Inferior mesenteric artery: Patent. Lymphatic system: No pathologic enlargement by size criteria. GI/mesentery: Distention of the stomach with air-fluid level. No evidence of intestinal obstruction. Normal appearance of the appendix. Peritoneum/Retroperitoneum: No free intraperitoneal gas or large collection. Urinary bladder: The urinary bladder is distended with a smooth thin wall. Pelvic organs: No significant abnormality. Bones/soft tissues: No significant abnormality. Minimal grade 1 anterolisthesis at L4-5. Trace periumbilical fat containing hernia. IMPRESSION: 1.No significant arterial abnormality. 2.Bilateral nephrolithiasis. 3.Gastric distention with air-fluid level, which is nonspecific. Reviewed by: Marquis Moon MD on 01/10/2022 7:38 PM PST Approved by: Marquis Moon MD on 01/10/2022 7:38 PM PST Station ID: [id number]
--- NOTE | 2022-01-10 19:57 | PROVIDER PROGRESS NOTE ---
Subjective - General Admit Date: 01/01/22 Procedure Date: 01/02/22 Post Op Days: 8 - Review of Systems All Other Systems: positive: Reviewed and negative - Other Other Information/Narrative: SURGERY UPDATE NOTE Was called ~5:30 this evening that patient had acute worsening of back pain and hematemesis. On arrival pts vitals were BP in 90s systolic and tachycardia into 120s. Stat labs were sent, protonix ordered. Fear was for GI bleed from ulcer and concomitant rib fxr pain worsened with wretching vs. an aortic dissection given recent incidental finding of ascending aortic aneurysm. Exam with abd pain but not worsened with palpation. Pt had RIJ central line placed by Dr. Fuller and fluids were administered with stabilization and improvement of BP. Labs returned showing lactate ~3, Hgb ~7 from 14 and INR persistently in 2 range (unknown etiology) despite multiple doses of vit K being given in last couple of days. The patient was taken for CTA chest and abdomen which showed blood in stomach but no evidence of extrav into GI tract on images, no obvious free air, and no obvious aortic dissection/rupture. R radial a-line was placed for close monitoring of BP. Due to pt's deteriorating clinical status decision was made to transfer to [facility]. Dr. Tod Sullivan (trauma surgery) accepted the patient who is to be transferred via helicopter to their emergency department. During the course of the evening PCC was given for coagulopathy, uncrossed blood was administered during resuscitation, IV protonix was given for GI bleed and COVID test was sent per [facility] request. At time of transfer pt was on 15 of levo (this was max rate over whole night) The patient remained responsive the entire time and was feeling a little better at time of transfer. was called and updated on these events and transfer plan. Objective - Patient Data Reviewed Vital Signs: Yes Vital Signs: Vital Signs x48h Temp Pulse Pulse Resp BP BP Pulse Ox 01/10/22 19:27 99.1 C H 115 H 22 99/63 01/10/22 19:10 114 H 26 H 113/66 95 01/10/22 19:05 37.2 C 113 H 24 130/68 01/10/22 18:59 37.2 C 120 H 22 114/70 96 01/10/22 18:55 112 H 23 129/68 94 01/10/22 18:50 118 H 23 118/59 L 93 01/10/22 18:40 100 25 H 139/68 H 93 01/10/22 18:30 120 H 22 78/56 L 92 01/10/22 18:20 122 H 24 95/62 95 01/10/22 18:15 120 H 22 106/48 L 100 01/10/22 18:05 131 H 18 95/67 100 01/10/22 18:00 123 H 18 91/65 98 01/10/22 17:55 130 H 16 91/65 96 01/10/22 17:50 121 H 20 95/67 95 01/10/22 17:45 120 H 28 H 99/65 98 01/10/22 17:38 123 H 28 H 87/53 L 99 01/10/22 17:36 128 H 26 H 81/45 L 91 L 01/10/22 17:24 130 H 36 H 75/50 L 95 01/10/22 17:20 136 H 24 111/80 93 01/10/22 12:05 37.0 C 96 18 120/72 95 Intake & Output: Intake and Output Totals x24h 01/08/22 01/09/22 01/10/22 23:59 23:59 23:59 Intake Total 1460 2170 860 Output Total 500 400 Balance 960 1770 860 - Lab Results Lab Results: 01/10/22 17:44 01/10/22 05:14 Other Lab Results: Lab Results x24hrs 01/10/22 01/10/22 01/10/22 Range/Units 17:44 17:44 17:44 WBC 21.8 H (4.8-10.8) x10^3/uL RBC 2.60 L (4.70-6.10) 10^6/uL Hgb 7.7 L (14.0-18.0) g/dL Hct 24.0 L (42.0-52.0) % MCV 92.3 (80.0-94.0) fL MCH 29.6 (27.0-31.0) pg MCHC 32.1 (32.0-36.0) g/dL RDW 12.9 (12.0-15.0) % Plt Count 383 (130-450) 10^3/uL MPV 9.1 (7.4-11.4) fL Neut # (Auto) 16.2 H Lymph # (Auto) 2.2 [place] # (Auto) 2.6 H Eos # (Auto) 0.1 Baso # (Auto) 0.1 Absolute Nucleated RBC 0.07 Total Counted Band Neuts % (Manual) Not Reportable (0 - 10) % Abnorm Lymph % (Manual) Not Reportable % Nucleated RBC % 0.3 Neutrophils # (Manual) Not Reportable (1.5-6.6) 10^3/uL Lymphocytes # (Manual) Not Reportable (1.5-3.5) 10^3/uL Monocytes # (Manual) Not Reportable (0.0-1.0) 10^3/uL Eosinophils # (Manual) Not Reportable (0-0.7) 10^3/uL Basophils # (Manual) Not Reportable (0-0.1) 10^3/uL Differential Comment MANUAL=AUTO DIFF Manual Slide Review Indicated WBC Morphology (NORMAL) Platelet Estimate NORMAL (130-450,000) (NORMAL) Platelet Morphology NORMAL APPEARANCE (NORMAL) RBC Morph Micro Appear 2+ HYPOCHROMASIA (NORMAL) PT 23.3 H (9.9-12.6) secs INR 2.1 H (0.8-1.2) Sodium (135-145) mmol/L Potassium (3.5-5.0) mmol/L Chloride (101-111) mmol/L Carbon Dioxide (21-32) mmol/L Anion Gap (6-13) BUN (6-20) mg/dL Creatinine (0.6-1.2) mg/dL Estimated GFR (MDRD) (>89) Glucose (70-100) mg/dL POC Whole Bld Glucose (70 - 100) mg/dL Estimat Average Glucose (70-100) mg/dL Hemoglobin A1c % (4.27-6.07) % Lactic Acid (0.5-2.2) mmol/L Calcium (8.5-10.3) mg/dL Total Bilirubin (0.2-1.0) mg/dL Direct Bilirubin (0.1-0.5) mg/dL AST (10-42) IU/L ALT (10-60) IU/L Alkaline Phosphatase (42-121) IU/L Total Protein (6.7-8.2) g/dL Albumin (3.2-5.5) g/dL Globulin (2.1-4.2) g/dL Blood Type A POSITIVE Blood Type Recheck Antibody Screen NEGATIVE Crossmatch IS Only See Detail 01/10/22 01/10/22 01/10/22 Range/Units 16:57 16:24 11:30 WBC (4.8-10.8) x10^3/uL RBC (4.70-6.10) 10^6/uL Hgb (14.0-18.0) g/dL Hct (42.0-52.0) % MCV (80.0-94.0) fL MCH (27.0-31.0) pg MCHC (32.0-36.0) g/dL RDW (12.0-15.0) % Plt Count (130-450) 10^3/uL MPV (7.4-11.4) fL Neut # (Auto) Lymph # (Auto) [place] # (Auto) Eos # (Auto) Baso # (Auto) Absolute Nucleated RBC Total Counted Band Neuts % (Manual) (0 - 10) % Abnorm Lymph % (Manual) % Nucleated RBC % Neutrophils # (Manual) (1.5-6.6) 10^3/uL Lymphocytes # (Manual) (1.5-3.5) 10^3/uL Monocytes # (Manual) (0.0-1.0) 10^3/uL Eosinophils # (Manual) (0-0.7) 10^3/uL Basophils # (Manual) (0-0.1) 10^3/uL Differential Comment Manual Slide Review WBC Morphology (NORMAL) Platelet Estimate (NORMAL) Platelet Morphology (NORMAL) RBC Morph Micro Appear (NORMAL) PT (9.9-12.6) secs INR (0.8-1.2) Sodium (135-145) mmol/L Potassium (3.5-5.0) mmol/L Chloride (101-111) mmol/L Carbon Dioxide (21-32) mmol/L Anion Gap (6-13) BUN (6-20) mg/dL Creatinine (0.6-1.2) mg/dL Estimated GFR (MDRD) (>89) Glucose (70-100) mg/dL POC Whole Bld Glucose 243 H 193 H (70 - 100) mg/dL Estimat Average Glucose (70-100) mg/dL Hemoglobin A1c % (4.27-6.07) % Lactic Acid 3.2 H* (0.5-2.2) mmol/L Calcium (8.5-10.3) mg/dL Total Bilirubin (0.2-1.0) mg/dL Direct Bilirubin (0.1-0.5) mg/dL AST (10-42) IU/L ALT (10-60) IU/L Alkaline Phosphatase (42-121) IU/L Total Protein (6.7-8.2) g/dL Albumin (3.2-5.5) g/dL Globulin (2.1-4.2) g/dL Blood Type Blood Type Recheck Antibody Screen Crossmatch IS Only 01/10/22 01/10/22 01/10/22 Range/Units 08:07 07:50 05:14 WBC (4.8-10.8) x10^3/uL RBC (4.70-6.10) 10^6/uL Hgb (14.0-18.0) g/dL Hct (42.0-52.0) % MCV (80.0-94.0) fL MCH (27.0-31.0) pg MCHC (32.0-36.0) g/dL RDW (12.0-15.0) % Plt Count (130-450) 10^3/uL MPV (7.4-11.4) fL Neut # (Auto) Lymph # (Auto) [place] # (Auto) Eos # (Auto) Baso # (Auto) Absolute Nucleated RBC Total Counted Band Neuts % (Manual) (0 - 10) % Abnorm Lymph % (Manual) % Nucleated RBC % Neutrophils # (Manual) (1.5-6.6) 10^3/uL Lymphocytes # (Manual) (1.5-3.5) 10^3/uL Monocytes # (Manual) (0.0-1.0) 10^3/uL Eosinophils # (Manual) (0-0.7) 10^3/uL Basophils # (Manual) (0-0.1) 10^3/uL Differential Comment Manual Slide Review WBC Morphology (NORMAL) Platelet Estimate (NORMAL) Platelet Morphology (NORMAL) RBC Morph Micro Appear (NORMAL) PT (9.9-12.6) secs INR (0.8-1.2) Sodium 133 L (135-145) mmol/L Potassium 4.4 (3.5-5.0) mmol/L Chloride 92 L (101-111) mmol/L Carbon Dioxide 29 (21-32) mmol/L Anion Gap 12.0 (6-13) BUN 36 H (6-20) mg/dL Creatinine 1.3 H (0.6-1.2) mg/dL Estimated GFR (MDRD) 55 L (>89) Glucose 171 H (70-100) mg/dL POC Whole Bld Glucose 167 H (70 - 100) mg/dL Estimat Average Glucose (70-100) mg/dL Hemoglobin A1c % (4.27-6.07) % Lactic Acid (0.5-2.2) mmol/L Calcium 9.3 (8.5-10.3) mg/dL Total Bilirubin 1.5 H (0.2-1.0) mg/dL Direct Bilirubin 0.5 (0.1-0.5) mg/dL AST 108 H (10-42) IU/L ALT 116 H (10-60) IU/L Alkaline Phosphatase 80 (42-121) IU/L Total Protein 6.5 L (6.7-8.2) g/dL Albumin 3.0 L (3.2-5.5) g/dL Globulin 3.5 (2.1-4.2) g/dL Blood Type Blood Type Recheck A POSITIVE Antibody Screen Crossmatch IS Only 01/10/22 01/10/22 01/10/22 Range/Units 05:14 05:14 05:13 WBC 20.0 H (4.8-10.8) x10^3/uL RBC 4.19 L (4.70-6.10) 10^6/uL Hgb 12.6 L (14.0-18.0) g/dL Hct 36.7 L (42.0-52.0) % MCV 87.6 (80.0-94.0) fL MCH 30.1 (27.0-31.0) pg MCHC 34.3 (32.0-36.0) g/dL RDW 12.8 (12.0-15.0) % Plt Count 399 (130-450) 10^3/uL MPV 8.3 (7.4-11.4) fL Neut # (Auto) Not Reportable Lymph # (Auto) Not Reportable [place] # (Auto) Not Reportable Eos # (Auto) Not Reportable Baso # (Auto) Not Reportable Absolute Nucleated RBC Not Reportable Total Counted 100 Band Neuts % (Manual) 6 (0 - 10) % Abnorm Lymph % (Manual) 0 % Nucleated RBC % Not Reportable Neutrophils # (Manual) 17.4 H (1.5-6.6) 10^3/uL Lymphocytes # (Manual) 0.6 L (1.5-3.5) 10^3/uL Monocytes # (Manual) 2.0 H (0.0-1.0) 10^3/uL Eosinophils # (Manual) 0.0 (0-0.7) 10^3/uL Basophils # (Manual) 0.0 (0-0.1) 10^3/uL Differential Comment MANUAL DIFFERENTIAL Manual Slide Review WBC Morphology NORMAL APPEARANCE (NORMAL) Platelet Estimate NORMAL (130-450,000) (NORMAL) Platelet Morphology NORMAL APPEARANCE (NORMAL) RBC Morph Micro Appear NORMAL APPEARANCE (NORMAL) PT 22.0 H (9.9-12.6) secs INR 2.0 H (0.8-1.2) Sodium (135-145) mmol/L Potassium (3.5-5.0) mmol/L Chloride (101-111) mmol/L Carbon Dioxide (21-32) mmol/L Anion Gap (6-13) BUN (6-20) mg/dL Creatinine (0.6-1.2) mg/dL Estimated GFR (MDRD) (>89) Glucose (70-100) mg/dL POC Whole Bld Glucose (70 - 100) mg/dL Estimat Average Glucose 134 H (70-100) mg/dL Hemoglobin A1c % 6.3 H (4.27-6.07) % Lactic Acid (0.5-2.2) mmol/L Calcium (8.5-10.3) mg/dL Total Bilirubin (0.2-1.0) mg/dL Direct Bilirubin (0.1-0.5) mg/dL AST (10-42) IU/L ALT (10-60) IU/L Alkaline Phosphatase (42-121) IU/L Total Protein (6.7-8.2) g/dL Albumin (3.2-5.5) g/dL Globulin (2.1-4.2) g/dL Blood Type Blood Type Recheck Antibody Screen Crossmatch IS Only - Imaging Results Radiology Imaging: positive: See rad report - Current Medications Current Medications: Current Medications Generic Name Dose Route Start Last Admin Trade Name Freq PRN Reason Stop Dose Admin Calcium Carbonate/Glycine 500 mg 01/06/22 21:00 01/10/22 08:05 Calcium Carbonate Chew 500 Mg Tablet PO 500 mg BID FREDDIE Administration Cholecalciferol 50 mcg 01/07/22 09:00 01/10/22 08:05 Cholecalciferol 25 Mcg Tablet PO 50 mcg DAILY FREDDIE Administration Docusate Sodium 250 - 500 mg 01/03/22 09:00 01/10/22 08:06 Docusate Sodium 250 Mg Capsule PO 250 mg DAILY FREDDIE Administration Gabapentin 300 mg 01/08/22 13:00 01/10/22 15:40 Gabapentin 300 Mg Capsule PO 300 mg TID [facility] Administration Hydromorphone HCl 0.5 mg 12/31/21 15:33 01/10/22 13:16 Hydromorphone 0.5 Mg/0.5 Ml Syringe IVP 0.5 mg Q2H PRN Administration Pain 8 to 10 Levofloxacin 750 mg in 150 mls @ 100 mls/hr 01/10/22 17:00 01/10/22 19:33 Levaquin 750 Mg/150 Ml IV Not Given Q24H [facility] Cefepime HCl 2 gm/ Sodium 100 mls @ 200 mls/hr 01/10/22 17:00 01/10/22 19:33 Chloride IV Not Given Q8H [facility] Vancomycin HCl 2 gm/ Sodium 500 mls @ 250 mls/hr 01/10/22 18:00 01/10/22 19:36 Chloride IV 01/10/22 19:59 Not Given ONCE ONE Norepinephrine Bitartrate 8 mg 250 mls @ 15 mls/hr 01/10/22 18:00 01/10/22 17:50 / Dextrose IV 12 mcg/min .[id number] FREDDIE 22.5 mls/hr Administration Protocol 8 MCG/MIN Ibuprofen 600 mg 01/03/22 14:00 01/10/22 15:38 Ibuprofen 600 Mg Tablet PO Not Given Q8HR [facility] Insulin Aspart 1 - 5 unit 01/10/22 08:00 01/10/22 19:32 Insulin Aspart 300 Unit/3 Ml Pen SUBQ Not Given 0800,1200,1700,2100 [facility] Protocol Lidocaine 1 patch 01/09/22 08:58 01/10/22 08:11 Lidocaine Patch 5% TOP 1 patch DAILY PRN Administration PAIN Multivitamins/Minerals 1 tab 01/08/22 17:00 01/10/22 08:05 Multivitamin W/Minerals Tablet PO 1 tab DAILYWM [facility] Administration Ondansetron HCl 4 mg 12/31/21 15:33 12/31/21 18:06 Ondansetron Odt 4 Mg Tablet TL 4 mg Q6HR PRN Administration Nausea / Vomiting Ondansetron HCl 4 mg 12/31/21 15:33 01/09/22 16:01 Ondansetron 4 Mg/2 Ml Vial IVP 4 mg Q6HR PRN Administration Nausea / Vomiting Oxycodone HCl 5 mg 12/31/21 15:33 01/06/22 13:00 Oxycodone 5 Mg Tablet PO 5 mg Q4HR PRN Administration Pain 5 to 7 Oxycodone HCl 10 mg 12/31/21 15:33 01/10/22 15:41 Oxycodone 5 Mg Tablet PO 10 mg Q4HR PRN Administration Pain 8 to 10 Polyethylene Glycol 17 gm 01/01/22 09:00 01/10/22 08:06 Polyethylene Glycol 3350 17 Gm Packet PO 17 gm DAILY [facility] Administration Saccharomyces Boulardii 500 mg 01/10/22 17:00 01/10/22 19:31 Saccharomyces Boulardii 250 Mg Capsule PO Not Given BIDWM [facility] Senna 8.6 - 17.2 mg 01/03/22 09:00 01/10/22 08:06 Senna 8.6 Mg Tablet PO 8.6 mg DAILY [facility] Administration Sodium Chloride 10 ml 12/31/21 15:33 01/10/22 05:53 Sodium Chloride Flush 0.9% 10 Ml Syringe IVP 10 ml PRN PRN Administration NEEDED PER PROVIDER ORDERS Sodium Chloride 10 ml 12/31/21 17:00 01/10/22 19:31 Sodium Chloride Flush 0.9% 10 Ml Syringe IVP Not Given 0100,0900,1700 [facility] - Physical Exam General Appearance: positive: Mild distress Abdomen: positive: Non-tender, Other (mildly distended, soft) Extremities: positive: Other (cool, palp pulses distally) Neurologic/Psychiatric: positive: Oriented x3 Impression/Plan - Problem List Problem List: Acute upper GI bleed in setting of coagulopathy of unknown etiology and multiple rib fractures. - resus - give blood/fluids - IV PPI - send COVID - txfr to [facility] via helicopter Yemi Stubbs MD General Surgery
[2022-01-10] MEDS ORDERED: LACTATED RINGERS 1,000 ML IV SCH (20:00)
[2022-01-10] MEDS ORDERED: PANTOPRAZOLE 40 MG VIAL IVP SCH (20:00)
[2022-01-10] MEDS ORDERED: PANTOPRAZOLE 40 MG VIAL IV SCH (20:00)
[2022-01-10 20:09] LABS: BILIRUBIN,URINE NEGATIVE (NEGATIVE); GLUCOSE, URINE (UA) NEGATIVE (NEGATIVE); KETONES,URINE (UA) NEGATIVE (NEGATIVE); LEUKOCYTE ESTERASE, URINE NEGATIVE (NEGATIVE); NITRITE,URINE NEGATIVE (NEGATIVE); OCCULT BLOOD,URINE NEGATIVE (NEGATIVE); PROTEIN,URINE NEGATIVE (NEGATIVE); UROBILINOGEN,URINE 0.2 (NORMAL) E.U./dL (NORMAL)
[2022-01-10 20:19] LABS: CLARITY,URINE CLEAR (CLEAR)
[2022-01-10 20:20] LABS: BACTERIA,URINE None Seen /HPF (None Seen); CASTS, URINE 0-2 Hyaline Casts /LPF; MUCUS,URINE Few Strands; RBC,URINE None Seen /HPF (0-5); SQUAMOUS EPITHELIAL CELL,UR RARE Squamous (<= Few); WBC,URINE 0-3 /HPF (0-3)
[2022-01-10] MEDS ORDERED: guaiFENesin 600 MG TABLET PO SCH (21:00)
[2022-01-10 21:45] VITALS: BP 118/66
[2022-01-11] MEDS ORDERED: PANTOPRAZOLE 40 MG VIAL IVP SCH (07:00)
[2022-01-11] MEDS ORDERED: VANCOMYCIN INJ 1 GM, VANCOMYCIN INJ 500 MG in SODIUM CHLORIDE 0.9% 500 ML IV SCH (18:00)
--- NOTE | 2022-01-12 13:03 | DISCHARGE SUMMARY ---
"Discharge Summary Admit Date: 12/31/21 Discharge Date: 01/10/22 Discharging Provider: Yemi Stubbs MD Condition at Discharge: Serious Discharge Disposition: 02 Transfer Acute Care Hosp - DIAGNOSES Admission Diagnoses: Multiple rib fractures Discharge Diagnoses with Status of Each Condition: Multiple rib fractures, active, still requiring pain control and O2 supplementat ion pleural effusion, right (moderate); active, slight improvement with diuresis upper GI bleed, unknown source; active, primary reason for transfer to higher level of care - HPI History of Present Illness: Per admission HPI: fall from ladder 6 to 7 ft 2 days ago. not doing well at home due to chest wall pain. - CONSULTS | PROCEDURES Consultations: hospitalist Procedures: chest tube - HOSPITAL COURSE Hospital Course: Found to have fractures of ribs 2-8, several ribs in two places. Trace PTX at that time. PTX worsened, chest tube placed on 01/02/22 and was removed 01/06/22. Prolonged stay due to poor pain control, PTX, and O2 requirement. Pleural effusion identified on CXR 01/08/22 and erector spinae block performed by anesthesia. CT obtained 01/09/22 which showed moderate simple effusion on right and incidental 4.5 cm ascending aortic aneurysm, coags found to be elevated with INR 1.9. Dose of vit K given and lasix given for effusion. On am 01/10/22 INR still 2.0, another dose vit K given and CXR with mild improvement in effusion. Medicine was consulted to evaluate cause of elevated INR (no known hx EtOH abuse or hepatitis). On evening of 01/10/22 patient developed acute worsening of back pain and hematemesis. On surgeon's arrival pts vitals were BP in 90s systolic and tachycardia into 120s. Stat labs were sent, protonix ordered. Fear was for GI bleed from ulcer and concomitant rib fxr pain worsened with wretching vs. an aortic dissection given recent incidental finding of ascending aortic aneurysm. Exam with abd pain but not worsened with palpation. Pt had RIJ central line placed by Dr. Fuller and fluids were administered with stabilization and improvement of BP. Labs returned showing lactate ~3, Hgb ~7 from 14 and INR persistently in 2 range (unknown etiology) despite multiple doses of vit K being given in last couple of days. The patient was taken for CTA chest and abdomen which showed blood in stomach but no evidence of extrav into GI tract on images, no obvious free air, and no obvious aortic dissection/rupture. R radial a-line was placed for close monitoring of BP. Due to pt's deteriorating clinical status decision was made to transfer to [facility]. Dr. Tod Sullivan (trauma surgery) accepted the patient who is to be transferred via helicopter to their emergency department. During the course of the evening PCC was given for coagulopathy, uncrossed blood was administered during resuscitation, IV protonix was given for GI bleed and COVID test was sent per [facility] [place]. At time of transfer pt was on 15 of levo (this was max rate over whole night) The patient remained responsive the entire time and was feeling a little better at time of transfer. was called and updated on these events and transfer plan. - ALLERGIES Allergies/Adverse Reactions: Allergies Allergy/AdvReac Type Severity Reaction Status Date / Time chlorpromazine Allergy Unknown Verified 12/31/21 21:41 [From Thorazine] Penicillins Allergy Unknown Verified 12/31/21 12:07 - MEDICATIONS Home Medications: Ambulatory Orders Medication Instructions Recorded Confirmed Telmisartan/Hydrochlorothiazid 1 each PO DAILY 12/31/21 01/01/22 [Micardis Hct 40-12.5 mg Tablet] - PHYSICAL EXAM AT DISCHARGE General Appearance: positive: Moderate distress Eyes Bilateral: positive: EOMI ENT: positive: Other (normocephalic, atraumatic, some dried blood around mouth and nares) Respiratory: positive: No respiratory distress Cardiovascular: positive: Tachycardia Abdomen: positive: Other (soft, mildly distended, non-tender) Skin: positive: Pallor Extremities: positive: Other (extremities cool distally) Neurologic/Psychiatric: positive: Oriented x3 - LABS Result Diagrams: 01/10/22 17:44 01/10/22 05:14 - DIAGNOSTIC IMAGING Diagnostic Imaging Results: See rad report (no aneurysm rupture or dissection, no free air) - TIME SPENT Time Spent in Discharge (Minutes): 30"
--- NOTE | 2022-01-12 13:25 | DISCHARGE TRANSFER SUMMARY ---
"Transfer Summary Admit Date: 12/31/21 Transfer Date: 01/10/22 Condition at Discharge: Serious Discharge Disposition: Transfer Acute Care Hosp Discharge Facility Name: [facility] Transfer to Location: [facility] - DIAGNOSES Admission Diagnoses: Multiple R sided rib fractures Discharge Diagnoses with Status of Each Condition: Multiple rib fractures, active, still requiring pain control and O2 supplementation pleural effusion, right (moderate); active, slight improvement with diuresis upper GI bleed, unknown source; active, primary reason for transfer to higher level of care - HPI History of Present Illness: Per admission HPI: fall from ladder 6 to 7 ft 2 days ago. not doing well at home due to chest wall pain. - CONSULTS | PROCEDURES Consultations: Hospitalist Procedures: R sided chest tube Erector spinae block - HOSPITAL COURSE Hospital Course: Found to have fractures of ribs 2-8, several ribs in two places. Trace PTX at that time. PTX worsened, chest tube placed on 01/02/22 and was removed 01/06/22. Prolonged stay due to poor pain control, PTX, and O2 requirement. Pleural effusion identified on CXR 01/08/22 and erector spinae block performed by anesthesia. CT obtained 01/09/22 which showed moderate simple effusion on right and incidental 4.5 cm ascending aortic aneurysm, coags found to be elevated with INR 1.9. Dose of vit K given and lasix given for effusion. On am 01/10/22 INR still 2.0, another dose vit K given and CXR with mild improvement in effusion. Medicine was consulted to evaluate cause of elevated INR (no known hx EtOH abuse or hepatitis). On evening of 01/10/22 patient developed acute worsening of back pain and hematemesis. On surgeon's arrival pts vitals were BP in 90s systolic and tachycardia into 120s. Stat labs were sent, protonix ordered. Fear was for GI bleed from ulcer and concomitant rib fxr pain worsened with wretching vs. an aortic dissection given recent incidental finding of ascending aortic aneurysm. Exam with abd pain but not worsened with palpation. Pt had RIJ central line placed by Dr. Fuller and fluids were administered with stabilization and improvement of BP. Labs returned showing lactate ~3, Hgb ~7 from 14 and INR persistently in 2 range (unknown etiology) despite multiple doses of vit K being given in last couple of days. The patient was taken for CTA chest and abdomen which showed blood in stomach but no evidence of extrav into GI tract on images, no obvious free air, and no obvious aortic dissection/rupture. R radial a-line was placed for close monitoring of BP. Due to pt's deteriorating clinical status decision was made to transfer to [facility]. Dr. Tod Sullivan (trauma surgery) accepted the patient who is to be transferred via helicopter to their emergency department. During the course of the evening PCC was given for coagulopathy, uncrossed blood was administered during resuscitation, IV protonix was given for GI bleed and COVID test was sent per [facility] request. At time of transfer pt was on 15 of levo (this was max rate over whole night) The patient remained responsive the entire time and was feeling a little better at time of transfer. was called and updated on these events and transfer plan. - ALLERGIES Allergies/Adverse Reactions: Allergies Allergy/AdvReac Type Severity Reaction Status Date / Time chlorpromazine Allergy Unknown Verified 12/31/21 21:41 [From Thorazine] Penicillins Allergy Unknown Verified 12/31/21 12:07 - MEDICATIONS Home Medications: Ambulatory Orders Medication Instructions Recorded Confirmed Telmisartan/Hydrochlorothiazid 1 each PO DAILY 12/31/21 01/01/22 [Micardis Hct 40-12.5 mg Tablet] - PHYSICAL EXAM AT DISCHARGE General Appearance: positive: Moderate distress Eyes Bilateral: positive: EOMI ENT: positive: Other (normocephalic, atraumatic, dried blood around nares and mouth) Respiratory: positive: No respiratory distress Cardiovascular: positive: Tachycardia Abdomen: positive: Other (soft, mildly distended, non-tender, no rebound or gua rding) Skin: positive: Pallor Extremities: positive: Other (extremities cool distally) Neurologic/Psychiatric: positive: Oriented x3 - LABS Result Diagrams: 01/10/22 17:44 01/10/22 05:14 - DIAGNOSTIC IMAGING Diagnostic Imaging Results: See rad report (no aortic rupture or dissection, no extrav into GI tract, no free air) - TIME SPENT Time Spent in Discharge (Minutes): 30"
== END 2022-01-10 20:50 | disposition short-term general hospital (02) | DRG 184 ==
LOC: EDUNIT# → ED 11:54 → UNDOADMOB 15:33 → MS2 15:33 → ICU 15:33 → MS2 16:55 → OBSVTOIN 01-01 14:12
PROVIDERS: ADMIT Surgery; ATTEND Surgery
PROC: 0W9930Z Drainage of Right Pleural Cavity with Drainage Device, Percutaneous Approach (ICD-10-PCS; principal; 2022-01-01)
PROC: 05HM33Z Insertion of Infusion Device into Right Internal Jugular Vein, Percutaneous Approach (ICD-10-PCS; 2022-01-10)
PROC: 03HY32Z Insertion of Monitoring Device into Upper Artery, Percutaneous Approach (ICD-10-PCS; 2022-01-10)
DX: S22.41XA Multiple fractures of ribs, right side, initial encounter for closed fracture (principal); S52.514A Nondisplaced fracture of right radial styloid process, initial encounter for closed fracture; S27.0XXA Traumatic pneumothorax, initial encounter; J90 Pleural effusion, not elsewhere classified; R04.2 Hemoptysis; K92.0 Hematemesis; N17.9 Acute kidney failure, unspecified; I10 Essential (primary) hypertension; Z88.8 Allergy status to other drugs, medicaments and biological substances; D72.829 Elevated white blood cell count, unspecified; I71.2 Thoracic aortic aneurysm, without rupture; G47.33 Obstructive sleep apnea (adult) (pediatric); M54.9 Dorsalgia, unspecified; R73.9 Hyperglycemia, unspecified; R74.01 Elevation of levels of liver transaminase levels; R79.1 Abnormal coagulation profile; R79.89 Other specified abnormal findings of blood chemistry; W11.XXXA Fall on and from ladder, initial encounter; Z20.822 Contact with and (suspected) exposure to COVID-19; Z79.899 Other long term (current) drug therapy; Z88.0 Allergy status to penicillin; Z96.611 Presence of right artificial shoulder joint
CPT/HCPCS: 36415; 71045; 71250; 71275; 73110; 74174; 74176; 80048; 80053; 80076; 81001; 83036; 83605; 83690; 85025; 85610; 86850; 86900; 86901; 86920; 87040; 87150; 87631; 87635; 93005; 96374; 96376; 99284; 99285; A9270; J1170; J1650; J7120; J7168; P9016; P9017; Q0162; Q9967; 0202U; 87086

== ENCOUNTER 2022-07-26 13:13 | Outpatient (CLI) | payer MEDICARE, OTHER ==
[2022-07-26 21:53] VITALS: BP 138/82
--- NOTE | 2022-07-26 21:53 | SLEEP CARE CONSULTATION ---
Information from patient questionnaire entered by Merlene Garcia. I have reviewed and concur with the information entered by Merlene Garcia. This document represents the service I personally performed and the decisions made by me, Woodrow Matthew MD, [facility]. History of Present Illness Service Date and Time: 07/26/2022 1313 Previous diagnosis: Mild, Obstructive Sleep Apnea-Hypopnea Syndrome AHI: 11 (in 2012) Reason for follow up: annual (LAST SEEN 07/04) Equipment type: CPAP (DREAMSTATION) Equipment obtained from: [facility] [employer] (getting supplies as needed) Mask style: Nasal Prior sleep studies: Yes Year and Where: 2012 - [facility]; 2003 - in [place], [place] ([facility]) Type of Sleep Study: Polysomnography HPI additional information: Mr. Leung was diagnosed to have mild obstructive sleep apnea-hypopnea syndrome and returns today with his for an annual follow up of CPAP therapy. The patient purchased the [employer] DreamStation autoCPAP from [facility]. It is set at 8 - 10 cmH2O. He has not used his CPAP much the past few months. This is due to an accident where he fell off a ladder and sustained broken ribs and lung laceration requiring surgery. He developed ARDS afterward and was on mechanical ventilatory support for a long time. He was discharged on home oxygen which now uses on exertion only. He lost 30 lbs from the ordeal. His says that he no longer snores. 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 Sleep Study - Results Type of Sleep Study: Polysomnography Prior sleep studies: Yes Year and Where: 2012 - [facility]; 2003 - in [place], [place] ([facility]) Subjective Initial [place] Sleepiness Scale score: 16 (in 2013) Current [place] Sleepiness Scale score: 10 (07/26/22) Allergies and Home Medications Home medication list reviewed: Yes Allergy and home medication list: Allergies chlorpromazine [From Thorazine] Allergy (Verified 12/31/21 21:41) Unknown Penicillins Allergy (Verified 12/31/21 12:07) Unknown Review of Systems Review of systems same as previous: Yes Physical Exam Vital signs obtained and entered by: GHANSHYAM NAGY Blood Pressure: 138/82 (RIGHT ARM ) Cuff size: regular Heart Rate: 89 O2 Saturation: 98 (2L OXYGEN ) Height: 5 ft 4 in Weight: 139 lb Body Mass Index: 23.8 BMI Classification: Healthy weight Impression and Plan IMPRESSION: 1. Obstructive Sleep Apnea-Hypopnea Syndrome, mild, and positional diagnosed 9 years ago. He has lost significant amount of weight. He no longer snores according to his . Given his recent lung injuries, positive airway pressure therapy may not be safe. Therefore, before insisting that he continues to use his CPAP or a BiPAP, I would like to first repeat the in-laboratory polysomnography. PLAN: 1. Repeat in-laboratory polysomnography. The study will be perf ormed on room air because the patient does not use his oxygen at night at home. 2. Avoid weight regain 3. Return for follow up after sleep study. I also can call him with the results if he is not coming back from [place]. Follow up with Sleep Care in: 1-2 months Visit Type: In Office Other Participants: Spouse/Significant Other Time Spent with Patient (minutes): 20 Provider Statement: I spent 100% of the Face to Face Visit with the patient with greater than 50% spent counseling the patient and coordination of care.
== END 2022-07-26 13:14 | disposition home or self-care (01) ==
LOC: SC 13:13
PROVIDERS: ATTEND Internal Medicine Pulmonary Disease
DX: G47.33 Obstructive sleep apnea (adult) (pediatric) (principal)
CPT/HCPCS: 99212; G0463

== ENCOUNTER 2022-07-30 20:37 | Outpatient (CLI) | payer MEDICARE, OTHER | END 2022-07-30 20:38 | disposition home or self-care (01) | LOC: SC 20:37 | PROVIDERS: ATTEND Internal Medicine Pulmonary Disease | DX: R09.02 Hypoxemia (principal); Z86.69 Personal history of other diseases of the nervous system and sense organs | CPT/HCPCS: 95810 ==

== ENCOUNTER 2022-09-06 20:19 | Outpatient (CLI) | payer MEDICARE, OTHER ==
--- NOTE | 2022-09-07 15:36 | Ultrasound Report ---
PROCEDURE: Carotid Doppler Complete INDICATIONS: SYNCOPE TECHNIQUE: Color and pulse Doppler interrogation was performed of both carotid systems, with image documentation and velocity measurements. COMPARISON: None. FINDINGS: Right side: Brachial blood pressure: 122/73 mm Hg. Common carotid artery peak systolic velocity: 66 cm/sec. Internal carotid artery peak systolic velocity: 76 cm/sec. Internal carotid artery end diastolic velocity: 36 cm/sec. External carotid artery peak systolic velocity: 54 cm/sec. ICA/CCA peak systolic ratio: 1.1 . [place] scale imaging description: Mild to moderate plaque at the bifurcation Percent internal carotid artery stenosis: Less than 50% . Vertebral artery: Flow direction is antegrade. Left side: Brachial blood pressure: 131/72 mm Hg. Common carotid artery peak systolic velocity: 67 cm/sec. Internal carotid artery peak systolic velocity: 64 cm/sec. Internal carotid artery end diastolic velocity: 20 cm/sec. External carotid artery peak systolic velocity: 33 cm/sec. ICA/CCA peak systolic ratio: 1.0 . [place] scale imaging description: Mild to moderate plaque at the bifurcation Percent internal carotid artery stenosis: Less than 50% . Vertebral artery: Flow direction is antegrade. IMPRESSION: Less than 50% stenosis of the internal carotid arteries bilaterally. The estimate of stenosis included in the report of the imaging study was calculated using the NASCET method Reviewed by: Cyndi Cerrato MD on 09/07/2022 3:34 PM PDT Approved by: Cyndi Cerrato MD on 09/07/2022 3:34 PM PDT Station ID: [id number]
== END 2022-09-06 20:20 | disposition home or self-care (01) ==
LOC: DI 20:19
PROVIDERS: ATTEND Family Medicine
DX: R55 Syncope and collapse (principal); I65.23 Occlusion and stenosis of bilateral carotid arteries
CPT/HCPCS: 93880

== ENCOUNTER 2022-09-22 15:07 | Outpatient (CLI) | payer MEDICARE, OTHER | END 2022-09-22 15:08 | disposition home or self-care (01) | LOC: DI 15:07 | PROVIDERS: ATTEND Family Medicine | DX: R55 Syncope and collapse (principal); I51.7 Cardiomegaly; I77.810 Thoracic aortic ectasia | CPT/HCPCS: 93306 ==

== ENCOUNTER 2023-02-09 13:18 | Outpatient (CLI) | payer MEDICARE, OTHER ==
--- NOTE | 2023-02-09 13:54 | SLEEP CARE CONSULTATION ---
Information from patient questionnaire entered by Cesilia Batista. I have reviewed and concur with the information entered by Cesilia Batista. This document represents the service I personally performed and the decisions made by me, Carlie Meredith ARNP. History of Present Illness Service Date and Time: 02/09/2023 1318 AHI: 4.6 (in 07/2022 ( 11 in 2012)) Reason for follow up: other (RESTLESS LEGS REFERRAL ) Accompanied by: Spouse (Jaycee) Prior sleep studies: Yes Year and Where: 2012 - [facility]; 2003 - in [place], [place] ([facility]) Type of Sleep Study: Polysomnography HPI additional information: MARCO ANTONIO MAYBERRY was previously diagnosed with mild ARCELIA but a retest in 07/2022 showed resolution of sleep apnea with AHI of 4.6. He returns today with spouse to discuss restless leg symptoms. He states after he was in the hospital, his noticed that he was moving his legs a lot when he was sitting still or laying in bed. They both feel the leg movements have been reducing over the last 3 months. He has been working with his primary doctor on eliminating and reducing medications he has been taking. He wants to get off medications that he does not need. He states that he is using a BIPAP arranged through his community outreach manager to assist in healing his lungs. Sleep Study - Results Type of Sleep Study: Polysomnography Prior sleep studies: Yes Year and Where: 2012 - [facility]; 2003 - in [place], [place] ([facility]) Subjective Initial [place] Sleepiness Scale score: 16 (in 2012) Current [place] Sleepiness Scale score: 5 (02/09/23) Allergies and Home Medications Known drug allergies: Yes (chlorpromazine, penicillins) Drug allergies reviewed: Yes Home medication list reviewed: Yes (no changes) Allergy and home medication list: Allergies chlorpromazine [From Thorazine] Allergy (Verified 02/08/23 16:36) Unknown Penicillins Allergy (Verified 02/08/23 16:36) Unknown Review of Systems Review of systems same as previous: Yes (post Thoracic surgery; being followed by Pulmonology) Physical Exam Vital signs obtained and entered by: CESILIA Strange MA Blood Pressure: 132/84 (LEFT ARM) Cuff size: regular Heart Rate: 84 O2 Saturation: 98 Height: 5 ft 4 in Weight: 141 lb 12.8 oz Weight change since last visit: 2 lb gain Body Mass Index: 24.3 BMI Classification: Normal Impression and Plan 1. Possible Restless Leg Syndrome (RLS): as exhibited by an urge to move the legs and generally involves symptoms of uncomfortable and unpleasant sensations. Symptoms usually begin or worsen with inactivity or periods of rest such as sitting or lying down. Patient feels his symptoms have actually been improving with changes in his medication over the last 3 months. I discussed with him different reasons that he can have these restless sensations in his legs. The first having a mild iron deficiency but he states that his primary provider did a blood test and he showed elevated iron in his blood. I explained to him that there can be other things affecting his legs such as medications, chronic conditions, caffeine or alcohol use. He voiced understanding. Patiently had a sleep study in July 2022 which showed resolution of his sleep apnea and no significant periodic leg movements of sleep. I do not feel at this time that he needs another study. He has not gained any significant weight. He also states the restless movements in his legs has been improving with changes in medication in the last 3 months. I advised him to follow-up with his primary care doctor for further evaluation as needed to rule out other contributors. Patient and agreed with plan of care. * Maintain a healthy weight * Follow up with PCP for further testing as needed * Return as needed for follow up. Counseling Topics: Weight control Visit Type: In Office Time Spent with Patient (minutes): 23 Provider Statement: I spent 100% of the Face to Face Visit with the patient with greater than 50% spent counseling the patient and coordination of care.
[2023-02-09 13:56] VITALS: BP 132/84
== END 2023-02-09 13:19 | disposition home or self-care (01) ==
LOC: SC 13:18
PROVIDERS: ATTEND Nurse Practitioner Family
DX: G25.81 Restless legs syndrome (principal)
CPT/HCPCS: 99213; G0463; 99212